=== PATIENT | female | born 1980 | race Caucasian/White ===

== ENCOUNTER 2020-05-22 10:07 | Outpatient (REF) | payer OTHER, SELFPAY ==
[2020-05-22 12:57] LABS: HCG Quantitative 5 mIU/mL
== END 2020-05-22 10:08 | disposition home or self-care (01) ==
LOC: HO.LAB 10:07
PROVIDERS: PCP Internal Medicine; Visit Provider Advanced Practice Midwife
DX: O20.0 Threatened abortion (principal)
CPT/HCPCS: 81025; 84702; 99212

== ENCOUNTER 2020-05-28 11:00 | Outpatient (REF) | payer OTHER, SELFPAY ==
[2020-05-28 12:45] LABS: HCG Quantitative < 2 mIU/mL
== END 2020-05-28 11:01 | disposition home or self-care (01) ==
LOC: HO.LAB 11:00
PROVIDERS: PCP Internal Medicine; Visit Provider Advanced Practice Midwife
DX: N92.6 Irregular menstruation, unspecified (principal)
CPT/HCPCS: 36415; 84702; 86850; 86900; 86901

== ENCOUNTER 2020-06-23 09:00 | Outpatient (REF) | payer OTHER, SELFPAY ==
[2020-06-23 11:23] LABS: HCG Quantitative 32 mIU/mL
== END 2020-06-23 09:01 | disposition home or self-care (01) ==
LOC: HO.LAB 09:00
PROVIDERS: Visit Provider Advanced Practice Midwife
DX: N92.6 Irregular menstruation, unspecified (principal); Z32.01 Encounter for pregnancy test, result positive
CPT/HCPCS: 36415; 81025; 84702; 99212

== ENCOUNTER 2020-06-25 11:55 | Outpatient (REF) | payer OTHER, SELFPAY ==
[2020-06-25 13:03] LABS: HCG Quantitative 20 mIU/mL
== END 2020-06-25 11:56 | disposition home or self-care (01) ==
LOC: HO.LAB 11:55
PROVIDERS: Visit Provider Advanced Practice Midwife
DX: N92.6 Irregular menstruation, unspecified (principal)
CPT/HCPCS: 36415; 84702

== ENCOUNTER 2020-07-03 11:07 | Outpatient (REF) | payer OTHER, SELFPAY ==
[2020-07-03 12:21] LABS: HCG Quantitative < 2 mIU/mL
== END 2020-07-03 11:08 | disposition home or self-care (01) ==
LOC: HO.LAB 11:07
PROVIDERS: PCP Internal Medicine; Visit Provider Advanced Practice Midwife
DX: O03.9 Complete or unspecified spontaneous abortion without complication (principal)
CPT/HCPCS: 36415; 84702

== ENCOUNTER 2020-09-30 13:28 | Outpatient (REF) | payer OTHER, SELFPAY ==
[2020-09-30 15:59] LABS: HCG Quantitative 104527 mIU/mL
[2020-10-01 01:08] LABS: CT PCR NOT DETECTED (Not Detect.); NG PCR NOT DETECTED (Not Detect.)
== END 2020-09-30 13:29 | disposition home or self-care (01) ==
LOC: HO.LAB 13:28
PROVIDERS: PCP Internal Medicine; Visit Provider Obstetrics & Gynecology
DX: O26.851 Spotting complicating pregnancy, first trimester (principal); Z3A.01 Less than 8 weeks gestation of pregnancy
CPT/HCPCS: 84702; 86850; 87491; 87591; 99212

== ENCOUNTER 2020-10-01 13:52 | Outpatient (REF) | payer OTHER, SELFPAY ==
--- NOTE | ~2020-10-01 | US_ITS ---
EXAMINATION: US OBSTETRICAL ULTRASOUND CLINICAL INFORMATION: Spotting. Check viability. COMPARISON: None. LMP: 08/15/2020. Gestational age by maternal dates is 6 weeks 5 days. Estimated date of delivery by maternal dates is 05/22/2021. TECHNIQUE: Transabdominal first trimester OB ultrasound FINDINGS: There is a single intrauterine gestational sac with visible yolk sac, embryo/fetus, and cardiac activity. There is no significant subchorionic hemorrhage or hematoma. HR: 124 beats per minute. CRL (crown rump length): 0.56 cm (6 weeks 3 days +/- 4 days). MERLY (estimated date of delivery): 05/24/2021 +/- 4 days. MATERNAL ADNEXA: The right maternal ovary is not seen. The left maternal ovary measures 2.5 x 1.6 x 2.1 cm. There is no significant maternal adnexal mass. No maternal pelvic ascites. US/US OB <= 14 weeks fetus IMPRESSION: 1. Single intrauterine gestation with ultrasound gestational age of 6 weeks 3 days +/- 4 days. 2. Estimated date of delivery is 05/24/2021 +/- 4 days.
== END 2020-10-01 13:53 | disposition home or self-care (01) ==
LOC: HO.US 13:52
PROVIDERS: PCP Internal Medicine; Visit Provider Obstetrics & Gynecology
DX: O26.851 Spotting complicating pregnancy, first trimester (principal)
CPT/HCPCS: 76801

== ENCOUNTER 2020-11-01 17:17 | Emergency (ER) | payer OTHER, SELFPAY ==
--- NOTE | ~2020-11-01 | US_ITS ---
EXAMINATION: US OBSTETRICAL ULTRASOUND CLINICAL INFORMATION: Vaginal bleeding, 11 weeks COMPARISON: ultrasound 10/01/2020. TECHNIQUE: A limited study was performed to assess for viability. Transabdominal scanning was performed. FINDINGS: A single live fetus is present in the gestational sac with a crown-rump length of 4.58 cm corresponding to a gestational age of 11 weeks 3 days with an MERLY of 05/20/2021. The fetus was active during the course of the exam. The left ovary measured 4.2 x 2.9 x 2.4 cm and contained a small simple cyst. The right ovary was not seen. US/US OB <= 14 weeks fetus IMPRESSION: Single live intrauterine with gestational age estimated at 11 weeks 3 days with an MERLY of 05/20/2021
[2020-11-01 17:49] VITALS: BP 133/76; PULSE 98; RESP 18; TEMP 36.8; O2SAT 99; BMI 32.4
[2020-11-01 18:21] LABS: Glucose Urine UA NEG (NEG); Leukocyte Esterase Urine NEG (NEG); Nitrite Urine NEG (NEG); Specific Gravity - Urine 1.015 (1.005-1.025); Urine Blood TRACE (NEG); Urine Ketones NEG (NEG); Urine Protein NEG (NEG-TRACE)
[2020-11-01 18:22] LABS: UPreg QC Valid YES; Urine Pregnancy POSITIVE (NEGATIVE)
[2020-11-01 18:23] LABS: Appearance Urine HAZY; Color Urine YELLOW
[2020-11-01 18:30] LABS: Amorphous Sediment Urine 1+ /LPF; Bacteria Urine TRACE /LPF; Squamous Epithelial Cell Urine 1+ /LPF
[2020-11-01 21:00] VITALS: BP 127/79; PULSE 88; RESP 18; O2SAT 98
--- NOTE | 2020-11-01 21:21 | ED.PREGNANCY ---
HPI - General Chief complaint: Vaginal Bleeding Stated complaint: 11 wks spotting Time Seen by Provider: 11/01/20 21:15 History of Present Illness HPI Narrative: Patient is a 40-year-old female presents today with having vaginal spotting. She is approximately 11 weeks . Patient had an ultrasound done at 6 weeks shows an intrauterine . No fever no chills. No cough no congestion or upper respiratory symptoms. No abdominal pain. Patient claims the spotting has improved in the last few hours. Patient from home. No abdominal pain or cramping. Patient thinks her blood type is O negative. Related Data Home Medications Medication Instructions Recorded Confirmed buprenorphine 2 mg-naloxone 0.5 mg 1 film BUCCAL DAILY 05/22/20 09/30/20 sublingual film Allergies Allergy/AdvReac Type Severity Reaction Status Date / Time cephalexin [Keflex] Allergy Unknown hives Verified 10/01/20 16:21 No Known Allergies Allergy Verified 10/01/20 16:21 Review of Systems Review of Systems: Constitutional: No Weight loss, No Fever, No Chills, No Night Sweats, No Fatigue, No Malaise ENT/Mouth: No Hearing loss, No Ear Pain, No Nasal Congestion, No Sinus Pain, No Hoarseness, No sore throat, No Rhinorrhea, No Swallowing Difficulty Eyes: No Eye Pain, No Swelling, No Redness, No Foreign Body, No Discharge, No Vision Changes Cardiovascular: No Chest Pain, No SOB, No Dyspnea on Exertion, No Orthopnea, No Edema, No Palpitations Respiratory: No Cough, No Sputum, No Wheezing, No Smoke Exposure, No Dyspnea Gastrointestinal: No Nausea, No Vomiting, No Diarrhea, No Constipation, No abdominal Pain, No Hematochezia, No Melena Genitourinary: no irregular bleeding, No Dysuria, No Urinary Frequency, No Hematuria, No Urinary Incontinence, No Urgency, No Flank Pain, No Urinary Flow Changes, No Hesitancy Musculoskeletal: No joint pain, No Myalgias, No Joint Swelling Skin: No Skin Lesions, No rash Neuro: No Weakness, No Numbness, No Paresthesias, No Loss of Consciousness, No Dizziness, No Headache Psych: No Anxiety/Panic, No Depression, No SI/HI/AH/VH, No Social Issues, Heme/Lymph: No Bruising, No Bleeding,No Lymphadenopathy Endocrine: No Polyuria, No Polydipsia, No Temperature Intolerance PMFSH Past Medical History Medical History Cyst of right breast High blood pressure affecting in third trimester, delivered Irregular menses Positive home test Rh negative, maternal Surgical History Hx of appendectomy Family History Family History Mother HTN (hypertension) Social History Social History Alcohol intake: never Advance Directives: No Advance Directives Information Provided: No Patient : Yes Gender identity: female Physical Exam Vital Signs: Vital Signs: Last Vital Signs Temp 98.2 F 11/01/20 17:49 Pulse 88 11/01/20 21:00 Resp 18 11/01/20 21:00 BP 127/79 11/01/20 21:00 Pulse Ox 98 11/01/20 21:00 Body Mass Index 32.4 Appearance: Alert. Oriented X3. No acute distress. Eyes: Pupils equal, round and reactive to light. ENT: Pharynx normal. Neck: Normal inspection. Neck supple. No lymph nodes noted. No crepitus CVS: Normal heart rate and rhythm. Pulses normal. Normal S1 and S2 Respiratory: No respiratory distress. Breath sounds normal. No Wheezing. No rales Abdomen: Soft and nontender. No rigidity. No distention. good BS x4 Skin: Skin warm and dry. Normal skin color. Normal skin turgor. Extremities: No lower extremity edema. Neurovascular intact to all extremities. No Lacerations. No Rash Neuro: Oriented X 3. No motor deficit. No sensory deficit. Moving all extermities. No slurred speech MDM - OB/Uterine Contractions MDM Narrative Medical decision making narrative: Ultrasound shows a single IUP. Patient well appearing. No acute distress. Will discharge patient home. Close follow-up on an outpatient basis. In stable condition. Will give patient venae be precautions. Medical Records Attestation: I reviewed the patient's medical records. Lab Data Attestation: I reviewed the patient's lab results. Result diagrams: 11/01/20 21:28 11/01/20 21:28 Labs: Lab Results 11/01/20 11/01/20 11/01/20 Range/Units 18:08 18:08 21:28 WBC 9.0 (4.8-10.8) X10*3/uL RBC 4.19 L (4.20-5.50) X10*6/uL Hgb 12.1 (12.0-16.0) g/dl Hct 35.7 L (37-47) % MCV 85.2 (80-98) fL MCH 28.9 (27.0-33.0) pg MCHC 33.9 (31.0-35.0) g/dl RDW 12.6 (11.0-16.0) % Plt Count 302 (160-400) X10*3/uL MPV 8.2 L (9.4-12.3) fL Immature Gran % (Auto) 0.2 (0.0-0.4) % Neut % (Auto) 61.7 (45-73) % Lymph % (Auto) 30.0 (20-40) % [place] % (Auto) 7.5 (2-11) % Eos % (Auto) 0.4 (0-4) % Baso % (Auto) 0.2 (0-2) % Lymph # (Auto) 2.7 (1.2-4.9) X10*3/uL [place] # (Auto) 0.7 (0.1-1.2) X10*3/uL Eos # (Auto) 0.0 (0.0-0.4) X10*3/uL Baso # (Auto) 0.0 (0.0-0.2) X10*3/uL Abs Immat Gran (auto) 0.02 (0.00-0.03) X10*3/uL Absolute Neuts (auto) 5.6 (2.0-8.3) X10*3/uL Absolute Nucleated RBC 0.000 (0.0-0.012) X10*3/uL Nucleated RBC % (auto) 0.0 (0.0-0.2) /100WBC Sodium (135-145) mmol/L Potassium (3.3-5.1) mmol/L Chloride (96-108) mmol/L Carbon Dioxide (22-29) mmol/L Anion Gap (12-20) BUN (9-16) mg/dL Creatinine (0.5-1.4) mg/dL Estim Creat Clear Calc Estimated GFR Random Glucose (60-115) mg/dL Calcium (8.4-10.2) mg/dL Total Bilirubin (0.0-1.0) mg/dL Direct Bilirubin (0.0-0.5) mg/dL AST (5-31) U/L ALT (0-31) U/L Alkaline Phosphatase (39-117) U/L Total Protein (6.5-8.0) g/dL Albumin (3.5-5.0) g/dL Beta HCG, Quant mIU/mL Urine Color YELLOW Urine Appearance HAZY Urine pH 6.0 (5.0-8.0) Ur Specific [place] 1.015 (1.005-1.025) Urine Protein NEG (NEG-TRACE) MG/DL Urine Glucose (UA) NEG (NEG) MG/DL Urine Ketones NEG (NEG) MG/DL Urine Blood TRACE (NEG) Urine Nitrite NEG (NEG) Ur Leukocyte Esterase NEG (NEG) Urine RBC 1-4 (0) /HPF Urine WBC 1-4 (0-4) /HPF Ur Squamous Epith Cells 1+ /LPF Amorphous Sediment 1+ /LPF Urine Bacteria TRACE /LPF Urine Test POSITIVE H (NEGATIVE) Blood Type Antibody Screen 11/01/20 11/01/20 11/01/20 Range/Units 21:28 21:28 21:28 WBC (4.8-10.8) X10*3/uL RBC (4.20-5.50) X10*6/uL Hgb (12.0-16.0) g/dl Hct (37-47) % MCV (80-98) fL MCH (27.0-33.0) pg MCHC (31.0-35.0) g/dl RDW (11.0-16.0) % Plt Count (160-400) X10*3/uL MPV (9.4-12.3) fL Immature Gran % (Auto) (0.0-0.4) % Neut % (Auto) (45-73) % Lymph % (Auto) (20-40) % [place] % (Auto) (2-11) % Eos % (Auto) (0-4) % Baso % (Auto) (0-2) % Lymph # (Auto) (1.2-4.9) X10*3/uL [place] # (Auto) (0.1-1.2) X10*3/uL Eos # (Auto) (0.0-0.4) X10*3/uL Baso # (Auto) (0.0-0.2) X10*3/uL Abs Immat Gran (auto) (0.00-0.03) X10*3/uL Absolute Neuts (auto) (2.0-8.3) X10*3/uL Absolute Nucleated RBC (0.0-0.012) X10*3/uL Nucleated RBC % (auto) (0.0-0.2) /100WBC Sodium 138 (135-145) mmol/L Potassium 3.5 (3.3-5.1) mmol/L Chloride 106 (96-108) mmol/L Carbon Dioxide 23 (22-29) mmol/L Anion Gap 13 (12-20) BUN 5 L (9-16) mg/dL Creatinine 0.51 (0.5-1.4) mg/dL Estim Creat Clear Calc 149.6 Estimated GFR > 60 Random Glucose 89 (60-115) mg/dL Calcium 9.3 (8.4-10.2) mg/dL Total Bilirubin 0.4 (0.0-1.0) mg/dL Direct Bilirubin 0.2 (0.0-0.5) mg/dL AST 11 (5-31) U/L ALT 14 (0-31) U/L Alkaline Phosphatase 53 (39-117) U/L Total Protein 6.6 (6.5-8.0) g/dL Albumin 3.8 (3.5-5.0) g/dL Beta HCG, Quant 465000 mIU/mL Urine Color Urine Appearance Urine pH (5.0-8.0) Ur Specific [place] (1.005-1.025) Urine Protein (NEG-TRACE) MG/DL Urine Glucose (UA) (NEG) MG/DL Urine Ketones (NEG) MG/DL Urine Blood (NEG) Urine Nitrite (NEG) Ur Leukocyte Esterase (NEG) Urine RBC (0) /HPF Urine WBC (0-4) /HPF Ur Squamous Epith Cells /LPF Amorphous Sediment /LPF Urine Bacteria /LPF Urine Test (NEGATIVE) Blood Type O Negative Antibody Screen NEGATIVE Discharge Plan Discharge Clinical Impression: Threatened Patient Disposition: Home, Self-Care Instructions: Threatened Miscarriage (ED) Prescriptions: No Action buprenorphine-naloxone [Suboxone] 2-0.5 mg film 1 film buccal DAILY RF: 0 Referrals: Jean Marie Iverson MD [Physician] - 2 days
[2020-11-01 21:35] LABS: MANUAL DIFF FLAG NO
[2020-11-01 21:37] LABS: Basophils Percent Auto 0.2 % (0-2); Eosinophils Percent Auto 0.4 % (0-4); Hematocrit 35.7 % (37-47); Hemoglobin 12.1 g/dl (12.0-16.0); Imm Gran Abs Auto 0.02 X10*3/uL (0.00-0.03); Imm Gran Pct Auto 0.2 % (0.0-0.4); Lymphocytes Absolute Auto 2.7 X10*3/uL (1.2-4.9); Mean Corpuscular HGB Conc 33.9 g/dl (31.0-35.0); Mean Corpuscular Hemoglobin 28.9 pg (27.0-33.0); Mean Corpuscular Volume 85.2 fL (80-98); Mean Platelet Volume 8.2 fL (9.4-12.3); Monocytes Absolute Auto 0.7 X10*3/uL (0.1-1.2); Monocytes Percent Auto 7.5 % (2-11); Neutrophils Absolute Auto 5.6 X10*3/uL (2.0-8.3); Neutrophils Percent Auto 61.7 % (45-73); Platelet Count 302 X10*3/uL (160-400); Red Blood Count 4.19 X10*6/uL (4.20-5.50); Red Cell Distribution Width 12.6 % (11.0-16.0)
[2020-11-01 21:59] LABS: Alanine Aminotransferase 14 U/L (0-31); Albumin Level 3.8 g/dL (3.5-5.0); Alkaline Phosphatase 53 U/L (39-117); Anion Gap 13 (12-20); Aspartate Amino Transferase 11 U/L (5-31); Bilirubin Direct 0.2 mg/dL (0.0-0.5); Bilirubin Total 0.4 mg/dL (0.0-1.0); Blood Urea Nitrogen 5 mg/dL (9-16); Calcium 9.3 mg/dL (8.4-10.2); Carbon Dioxide 23 mmol/L (22-29); Chloride 106 mmol/L (96-108); Creatinine Clr Calc Pharmacy 149.6; Estimated Glomerular Filt Rate > 60; Glucose Random 89 mg/dL (60-115); Potassium 3.5 mmol/L (3.3-5.1); Sodium 138 mmol/L (135-145); Total Protein 6.6 g/dL (6.5-8.0)
[2020-11-01] MEDS: Rho(D) Immune Globulin 300 MCG SYRINGE IM (22:53)
== END 2020-11-02 00:15 | disposition home or self-care (01) ==
PROVIDERS: Emergency Provider Emergency Medicine Emergency Medical Services; PCP Internal Medicine
DX: O20.0 Threatened abortion (principal); O09.521 Supervision of elderly multigravida, first trimester; Z3A.11 11 weeks gestation of pregnancy
CPT/HCPCS: 36415; 76801; 80048; 80076; 81001; 81025; 84702; 85025; 86850; 86900; 86901; 96372; 99284; J2790

== ENCOUNTER 2022-06-14 07:52 | Outpatient (REF) | payer OTHER, SELFPAY ==
--- NOTE | ~2022-06-14 | XR_ITS ---
EXAMINATION: XR KNEE, RIGHT CLINICAL INFORMATION: Pain. COMPARISON: None TECHNIQUE: AP, lateral, tunnel, and sunrise views of the right knee. FINDINGS: Bony alignment and mineralization are normal. There is slight asymmetric narrowing of the medial joint space compartment. The lateral and patellofemoral joint space compartments are well-maintained. No fracture, dislocation or joint effusion is seen. There is no foreign body. XR/XR knee RT 4V IMPRESSION: 1. There is very mild degenerative change of the medial joint space compartment of the right knee. 2. No right knee fracture, dislocation or joint effusion is seen.
[2022-06-14 08:01] LABS: MANUAL DIFF FLAG NO
[2022-06-14 08:17] LABS: Basophils Percent Auto 0.6 % (0-2); Eosinophils Absolute Auto 0.1 X10*3/uL (0.0-0.4); Eosinophils Percent Auto 1.2 % (0-4); Hematocrit 40.4 % (37.0-47.0); Hemoglobin 13.2 g/dl (12.0-16.0); Imm Gran Abs Auto 0.05 X10*3/uL (0.00-0.03); Imm Gran Pct Auto 0.7 % (0.0-0.4); Lymphocytes Percent Auto 27.9 % (20-40); Mean Corpuscular HGB Conc 32.7 g/dl (31.0-35.0); Mean Corpuscular Hemoglobin 27.5 pg (27.0-33.0); Mean Corpuscular Volume 84.2 fL (80.0-98.0); Mean Platelet Volume 8.3 fL (9.4-12.3); Monocytes Absolute Auto 0.5 X10*3/uL (0.1-1.2); Monocytes Percent Auto 6.4 % (2-11); Neutrophils Absolute Auto 4.6 x10*3/uL (2.0-8.3); Neutrophils Percent Auto 63.2 % (45-73); Platelet Count 306 X10*3/uL (160-400); White Blood Count 7.2 X10*3/uL (4.8-10.8)
[2022-06-14 08:55] LABS: Alanine Aminotransferase 25 U/L (0-31); Albumin Level 4.1 g/dL (3.5-5.0); Alkaline Phosphatase 92 U/L (39-117); Anion Gap 14 (12-20); Aspartate Amino Transferase 17 U/L (5-31); Bilirubin Total 0.4 mg/dL (0.0-1.0); Blood Urea Nitrogen 12 mg/dL (9-16); Calcium 9.1 mg/dL (8.4-10.2); Carbon Dioxide 22 mmol/L (22-29); Chloride 108 mmol/L (96-108); Cholesterol 168 mg/dL; Estimated Glomerular Filt Rate > 60; Glucose Fasting 107 mg/dL (60-99); HDL Cholesterol 60 mg/dL; LDL Cholesterol Calculated 92 mg/dl; Potassium 4.2 mmol/L (3.3-5.1); Sodium 140 mmol/L (135-145); Total Protein 6.8 g/dL (6.5-8.0); Triglycerides 80 mg/dL
[2022-06-14 08:59] LABS: TSH reflex Free T4 1.08 uIU/mL (0.32-4.0); Vitamin D 25-OH Total 21.8 ng/mL (>30)
[2022-06-14 09:54] LABS: Appearance Urine Clear; Color Urine Yellow; Glucose Urine UA Negative (Negative); Leukocyte Esterase Urine Small (1+) (Negative); Nitrite Urine Negative (Negative); Specific Gravity - Urine 1.025 (1.005-1.025); UMIC TRIGGER UACC YES; Urine Blood Negative (Negative); Urine Ketones Negative (Negative); Urine Protein Negative (Neg-Trace)
[2022-06-14 10:00] LABS: Bacteria Urine 4+ (None Seen); Hyaline Casts Urine 0-2 /LPF (0-2); RBC Urine 0-2 /HPF (0-2); UACC Culture Trigger YES; WBC Urine 21-50 /HPF (0-5)
== END 2022-06-14 07:53 | disposition home or self-care (01) ==
LOC: HO.XRAY 07:52
PROVIDERS: PCP Internal Medicine; Visit Provider Internal Medicine
DX: Z00.00 Encounter for general adult medical examination without abnormal findings (principal); M25.561 Pain in right knee; E78.00 Pure hypercholesterolemia, unspecified; E55.9 Vitamin D deficiency, unspecified
CPT/HCPCS: 36415; 73564; 80053; 80061; 81001; 82306; 84443; 85025; 87086; 87088; 87186

== ENCOUNTER 2022-06-24 14:46 | Outpatient (REF) | payer OTHER, SELFPAY ==
--- NOTE | ~2022-06-24 | MM_ITS ---
EXAMINATION: MM SCREENING DIGITAL BREAST TOMOSYNTHESIS, BILATERAL CLINICAL INFORMATION: Screening. Asymptomatic. The lifetime risk of breast cancer based on the Tyrer-Cuzick Model is 9.5%. COMPARISON: Mammography: 04/13/2016. TECHNIQUE: Digital breast tomosynthesis is performed in both the craniocaudal and mediolateral oblique views along with computer-aided detection (CAD). Synthesized 2D images are generated from the tomosynthesis. FINDINGS: The breasts are heterogeneously dense, which may obscure small masses (ACR BI-RADS breast composition Category c). Within the superior aspect of the mid right breast, there are again noted to be some calcifications as well as question of a density. Calcifications have been noted previously but difficult to directly compare. No definite evidence of milk of calcium. Recommend spot magnification films in 90-degree and craniocaudal projections for evaluation of calcifications and underlying question mass seen on craniocaudal view. MM/MM tomosynthesis screening BI IMPRESSION: Right breast calcifications and density for further evaluation as described. ASSESSMENT: BI-RADS 0: Incomplete - Need additional imaging evaluation. RECOMMENDATION: 1. Additional views of the right breast. 2. Targeted ultrasound if warranted after review of the additional views. 3. Radiology department staff will contact the patient for additional imaging. This patient's information was entered into a reminder system with a target due date for their next mammogram.
== END 2022-06-24 14:47 | disposition home or self-care (01) ==
LOC: HO.MAMMO 14:46
PROVIDERS: PCP Internal Medicine; Visit Provider Internal Medicine
DX: Z12.31 Encounter for screening mammogram for malignant neoplasm of breast (principal)
CPT/HCPCS: 77063; 77067

== ENCOUNTER 2022-07-01 13:01 | Outpatient (REF) | payer OTHER, SELFPAY ==
--- NOTE | ~2022-07-01 | MM_ITS ---
EXAMINATION: MM DIAGNOSTIC DIGITAL MAMMOGRAPHY, RIGHT CLINICAL INFORMATION: Right breast calcifications and question density. COMPARISON: Mammography: 04/13/2016 TECHNIQUE: Digital mammography is performed in the following views: Spot magnification views right breast in craniocaudal and 90-degree mediolateral views. FINDINGS: The breasts are heterogeneously dense, which may obscure small masses (ACR BI-RADS breast composition Category c). The grouping of calcifications about the superior aspect of the right breast appears stable compared to examination of 04/13/2016. The spot compression views also compressed out the questioned mass which represented superimposition of fibroglandular tissue. Results are provided to the patient at time of visit by the technologist. MM/MM added views RT IMPRESSION: No mammographic evidence of malignancy. ASSESSMENT: BI-RADS 2: Benign RECOMMENDATION: Routine annual mammography screening. This patient's information was entered into a reminder system with a target due date for their next mammogram.
== END 2022-07-01 13:02 | disposition home or self-care (01) ==
LOC: HO.MAMMO 13:01
PROVIDERS: Visit Provider Internal Medicine
DX: R92.1 Mammographic calcification found on diagnostic imaging of breast (principal)
CPT/HCPCS: 77065

== ENCOUNTER 2023-01-07 15:46 | Outpatient (AMB) | payer OTHER, SELFPAY ==
[2023-01-07 15:48] VITALS: BP 144/92; PULSE 92; O2SAT 97; BMI 35.8
--- NOTE | 2023-01-07 15:48 | A.OFFPC_ITS ---
Vital Signs 01/07/23 15:48 Height 5 ft 3 in Weight 202 lb 4 oz BMI 35.8 BP 144/92 H Blood Pressure Location Lt brachial Position Sitting Pulse 92 Pulse Source Pulse Oximeter Pulse Oximetry (%) 97 Oxygen Delivery Method Room Air Intake Visit Reasons: right knee pain Director Of Epidemiology Required: No Accompanied by: Self / Same As Patient Allergies cephalexin [Keflex] Allergy (Unknown, Verified 01/07/23 16:15) hives No Known Allergies Allergy (Verified 01/07/23 16:15) Medication List - Last Reconciled 01/07/23 by River Kendrick MD etonogestrel (Nexplanon) subdermal Tobacco use date assessed: 01/07/23 Dental Screening Dental Screen Date: 01/07/23 Did you have a dental visit in the last 12 months?: No Did you have a dental problem in the last 6 months where you did not have access to dental care?: No Was dental information given to patient?: Patient has dentist HPI right knee pain HPI Details Patient comes in today for her follow up visit States that she feels okay Still has on and off right knee pain but states that her knee pain have been mostly tolerable lately She has been back to work for a while now (works at a local [employer]) and states that she's had no significant flare ups or issues with her knee She denies any headaches or dizziness Denies any chest pains, no SOB No nausea/vomiting, no abdominal pain No change in bowel habits noted Would like to know how she did on her labs done back in May 2022 [facility] Medical History (Updated 01/07/23 @ 16:26 by River Kendrick MD) Cyst of right breast High blood pressure affecting in third trimester, delivered Irregular menses Obesity (BMI 30-39.9) Primary osteoarthritis of right knee Rh negative, maternal Vitamin D deficiency Surgical History Hx of appendectomy Family History Mother HTN (hypertension) Social History Housing: House Alcohol intake: never Patient Tobacco Use Status: Former Tobacco user Years Smoked: pt states quit 3 yrs ago e-Cigarette/Vaping Use: Never Used Substance Use Type: Heroin service: No Current occupational status: employed Gender identity: Female Cognitive needs: No Hearing needs: No Vision needs: Yes Female Reproductive History Menstrual Age of Menarche: 14 Questionnaire PHQ-9 Over the last 2 weeks, how often have you been bothered by any of the following problems? 1. Little interest or pleasure in doing things: not at all 2. Feeling down, depressed, or hopeless: not at all 3. Trouble falling or staying asleep, or sleeping too much: not at all 4. Feeling tired or having little energy: not at all 5. Poor appetite or overeating: not at all 6. Feeling bad about yourself - or that you are a failure or have let yourself or your family down: not at all 7. Trouble concentrating on things, such as reading the newspaper or watching television: not at all 8. Moving or speaking so slowly that other people could have noticed. Or the opposite - being so fidgety or restless that you have been moving around a lot more than usual: not at all 9. Thoughts that you would be better off or of hurting yourself in some way: not at all Total score: 0 Depression Screening Interpretation: Negative 73391 - PHQ-9 Billing: Yes Source: Developed by Drs. Raul Chavez, Karol Yañez, Vincent Williamson and colleagues, with an educational adrianne from [employer]. Thrive Questionnaire Date Thrive assessed: 01/07/23 I am a: Patient What is your living situation today?: I have a steady place to live Within the past 12 months, did the food you bought not last and you didn't have the money to get more?: Never true Within the past 12 months, did you worry whether your food would run out before you got money to buy more?: Never true Do you have trouble paying for medicines?: No Do you have trouble getting transportation to medical appointments?: No Do you have trouble paying your heating and electricity bill?: No Do you have trouble taking care of your child, family member or friend?: No Do you have trouble with day-to-day activities such as bathing, preparing meals, shopping, managing finances, etc.?: No Are you currently unemployed and looking for a job?: No Are you interested in more education?: No Please select the resources that you would like help with: None Currently or been in a relationship where the following occur: no concerns reported AUDIT C Alcohol Use Questionnaire (AUDIT-C) 1. How often do you have a drink containing alcohol?: Never 2. How many drinks containing alcohol do you have on a typical day when you are drinking?: 1 or 2 (0) 3. How often do you have six or more drinks on one occasion?: Never Total Score: 0 Score Reviewed/Action Taken: Yes JAROD-7 AMB Questionnaire JAROD-7 Date JAROD - 7 assessed: 01/07/23 Feeling nervous, anxious, or on edge: 0 = Not at all Not being able to stop or control worryin = Not at all Worrying too much about different things: 0 = Not at all Trouble relaxin = Not at all Being so restless that it is hard to sit still: 0 = Not at all Becoming easily annoyed or irritable: 0 = Not at all Feeling afraid as if something awful might happen: 0 = Not at all Total JAROD-7 score (0-4 normal; 5-9 mild; 10-14 moderate; 15-21 severe): 0 Source: Developed by Drs. Raul Chavez, Karol Yañez, Vincent Williamson and colleagues, with an educational adrianne from [employer]. Review of Systems Const Denies chills, Denies fatigue, Denies fever(s) and Denies headache(s) ENT Denies dysphagia, Denies dizziness, Denies otalgia, Denies headache(s), Denies neck pain, Denies odynophagia and Denies sore throat Card Denies chest pain, Denies palpitations and Denies dyspnea Resp Denies cough and Denies dyspnea GI Denies abdominal pain, Denies constipation, Denies dysphagia, Denies heartburn, Denies diarrhea, Denies nausea, Denies odynophagia and Denies vomiting Denies difficulty voiding, Denies nocturia and Denies dysuria Musc Reports arthralgias (in the right knee, on and off) and Denies neck pain Neuro Denies dizziness and Denies headache(s) Endo Denies fatigue and Denies palpitations Physical exam (Primary Care) Vital Signs: Last Vital Signs Pulse 92 08/18/23 15:48 BP 144/92 H 01/07/23 15:48 Pulse Ox 97 01/07/23 15:48 Oxygen Delivery Method Room Air 01/07/23 15:48 BMI result Body Mass Index 35.8 Tobacco/Smoking Status: Tobacco use Status Tobacco use date assessed 01/07/23 01/07/23 15:52 Patient Tobacco Use Status Former Tobacco user 01/07/23 15:52 e-Cigarette/Vaping Use Never Used 01/07/23 15:52 PHQ-9: PHQ-9 Score PHQ-9: Total score 0 01/07/23 16:26 Depression Screening Interpretation: Negative Thrive Assessment: Date of Thrive Assessment Date Thrive assessed 01/07/23 01/07/23 15:52 Currently or been in a relationship where the following occur: no concerns reported Const General: no acute distress and alert HENMT Ears: TM's normal bilaterally and EAC's normal Throat: Yes posterior oropharynx normal and Yes tonsils normal (no TP congestion) Neck Neck: Yes no lymphadenopathy and Yes supple Resp Auscultation: clear to auscultation bilaterally, no rales and no wheezes Cardio Rate: regular rate Rhythm: regular rhythm Heart sounds: no murmurs GI Palpation (GI): Soft to palpation, nontender and No hepatosplenomegaly present Skin General skin exam: no rashes or lesions noted Extrem General: Yes no clubbing, cyanosis or edema Results Reviewed Results Reviewed: Laboratory Tests 06/14/22 06/14/22 06/14/22 07:40 07:59 07:59 WBC 7.2 Hgb 13.2 Hct 40.4 Plt Count 306 Sodium 140 Potassium 4.2 Creatinine 0.74 Estimated GFR > 60 Fasting Glucose 107 H Calcium 9.1 AST 17 ALT 25 Triglycerides 80 Cholesterol 168 LDL Cholesterol, Calc 92 HDL Cholesterol 60 25-OH Vitamin D Total 21.8 TSH 1.08 Ur Specific [place] 1.025 Urine Protein Negative Urine Glucose (UA) Negative Urine Blood Negative Assessment and Plan Assessment & Plan (1) Primary osteoarthritis of right knee: Code(s): M17.11 - Unilateral primary osteoarthritis, right knee Plan: X-rays of the right knee done back in May 2022 revealed (+) very mild degenerative change of the medial joint space compartment of the right knee Advised that at this point, there is not much we need to do and that she can just take OTC Tylenol or Ibuprofen as needed for increased knee pain Will consider referring to orthopedics if her knee pain gets progressively worse (2) Impaired fasting glucose: Code(s): R73.01 - Impaired fasting glucose Plan: Results of her labs done back in May 2022 reviewed and discussed with patient Advised that her fasting glucose was slightly elevated on her labs done back in May 2022 and that we should monitor it closely for now Discussed low calorie diet/low carb diet Advised that exercising regularly and losing some weight should also help keep this under control Will recheck her labs when she comes back in 6 months for her next annual physical examination (3) Vitamin D deficiency: Code(s): E55.9 - Vitamin D deficiency, unspecified Plan: Advised that her Vitamin D level was low on her labs done earlier this year and that she should start taking an OTC Vitamin D3 2000 units QD (4) Obesity (BMI 30-39.9): Code(s): E66.9 - Obesity, unspecified Plan: Reinforced diet/exercise as tolerated/lose weight Plan To return in 6 months for her next annual physical examination Coding Level of Care Code Est Pt Level 4 (93079) Diagnoses Primary osteoarthritis of right knee M17.11 Impaired fasting glucose R73.01 Vitamin D deficiency E55.9 Obesity (BMI 30-39.9) E66.9
== END 2023-01-07 16:23 | disposition home or self-care (01) ==
PROVIDERS: PCP Internal Medicine; Visit Provider Internal Medicine
DX: M17.11 Unilateral primary osteoarthritis, right knee (principal); E55.9 Vitamin D deficiency, unspecified; Z68.35 Body mass index [BMI] 35.0-35.9, adult; E66.9 Obesity, unspecified; R73.01 Impaired fasting glucose
CPT/HCPCS: 99214

== ENCOUNTER 2023-04-06 10:44 | Outpatient (AMB) | payer OTHER, SELFPAY ==
--- NOTE | 2023-04-06 10:46 | A.OFFPC_ITS ---
Intake Visit Reasons: covid+ 3 days out/ tighten in chest when coughing Intake Note: Telehealth Covid positive, tight chest, cough Ruffling Hemmer Automatic Required: No Allergies cephalexin [Keflex] Allergy (Unknown, Verified 04/06/23 11:29) hives No Known Allergies Allergy (Verified 04/06/23 11:29) Medication List - Last Reconciled 04/06/23 by Sarita Schultz MD etonogestrel (Nexplanon) subdermal Tobacco use date assessed: 01/07/23 Dental Screening Dental Screen Date: 04/06/23 Did you have a dental visit in the last 12 months?: No Did you have a dental problem in the last 6 months where you did not have access to dental care?: No Was dental information given to patient?: Patient has dentist HPI HPI Comments History of Present Illness Details This is a 42-year-old female that tested positive for COVID-19 3 days ago and started having symptoms of sneezing and coughing as well as body aches 5 days ago. She has telehealth visit by phone today complaining of cough and chest wall pain on inspiration. She said the symptoms are similar as to when she had bronchitis. I will order chest x-ray. [facility] Medical History (Updated 04/06/23 @ 11:56 by Sarita Schultz MD) Vitamin D deficiency Primary osteoarthritis of right knee Obesity (BMI 30-39.9) Rh negative, maternal High blood pressure affecting in third trimester, delivered Cyst of right breast Irregular menses Surgical History Hx of appendectomy Family History Mother HTN (hypertension) Social History Housing: House Alcohol intake: never Patient Tobacco Use Status: Former Tobacco user Years Smoked: pt states quit 3 yrs ago e-Cigarette/Vaping Use: Never Used Substance Use Type: Heroin service: No Current occupational status: employed Gender identity: Female Cognitive needs: No Hearing needs: No Vision needs: Yes Female Reproductive History Menstrual Age of Menarche: 14 Questionnaire Thrive Questionnaire Date Thrive assessed: 01/07/23 JAROD-7 AMB Questionnaire JAROD-7 Date JAROD - 7 assessed: 01/07/23 Source: Developed by Drs. Raul Chavez, Karol Yañez, Vincent Williamson and colleagues, with an educational adrianne from [employer]. Review of Systems Const All systems reviewed & are unremarkable except as noted in HPI and below Eyes Reports no additional complaints, Denies change in vision and Denies other visual disturbances Card Denies chest pain at rest, Denies chest pain with activity, Denies edema, Denies irregular heart rhythm, Denies claudication, Denies dyspnea, Reports dyspnea on exertion, Denies orthopnea, Denies paroxysmal nocturnal dyspnea and Denies slow heart rate Resp Reports cough, Reports pain on inspiration, Reports pain with cough, Denies dyspnea and Reports dyspnea on exertion GI Denies abdominal pain, Denies change in bowel habits, Denies excessive flatus, Denies nausea and Denies vomiting Denies urinary incontinence, Denies urinary hesitancy and Denies urinary urgency Musc Denies abnormal gait, Denies atrophy, Denies deformity and Denies limited range of motion Skin/Breast Denies bleeding lesions, Denies changing lesions and Denies rash Neuro Denies abnormal gait and Denies lack of coordination Physical exam (Primary Care) Tobacco/Smoking Status: Tobacco use Status Tobacco use date assessed 01/07/23 04/06/23 10:48 Patient Tobacco Use Status Former Tobacco user 04/06/23 10:48 e-Cigarette/Vaping Use Never Used 04/06/23 10:48 Thrive Assessment: Date of Thrive Assessment Date Thrive assessed 01/07/23 04/06/23 10:48 Telehealth Telehealth Location of provider rendering services: practice address Location of patient: address on file Patient Identification confirmed using: Name, : Yes Telehealth method: voice only Patient verbally consented to treatment: Yes Patient verbally consented to billing insurance company: Yes Patient informed of any privacy concerns related to visit: Yes Minutes spent on Phone/Video with Pt.: 15 Assessment and Plan Assessment & Plan (1) COVID-19: Code(s): U07.1 - COVID-19 Plan: Treat symptoms as needed. Chest x-ray ordered. Coding Level of Care Code Tele Est Pt Level 3 (16572) Diagnoses COVID-19 U07.1 Time Spent (min) 15
== END 2023-04-06 12:43 | disposition home or self-care (01) ==
LOC: HO.HMGH 10:44
PROVIDERS: PCP Internal Medicine; Visit Provider Internal Medicine
DX: U07.1 COVID-19 (principal)
CPT/HCPCS: 99213

== ENCOUNTER 2023-04-07 08:02 | Outpatient (REF) | payer OTHER, SELFPAY ==
--- NOTE | ~2023-04-07 | XR_ITS ---
EXAMINATION: XR CHEST CLINICAL INFORMATION: Covid 19 COMPARISON: 10/28/2012 TECHNIQUE: 2 views of the chest were obtained. FINDINGS: No significant abnormality is noted involving the heart, lungs, mediastinum, or soft tissues. Mild degenerative changes. XR/XR chest 2V IMPRESSION: No acute cardiopulmonary disease.
== END 2023-04-07 08:03 | disposition home or self-care (01) ==
LOC: HO.XRAY 08:02
PROVIDERS: Visit Provider Internal Medicine
DX: R05.9 Cough, unspecified (principal); U07.1 COVID-19
CPT/HCPCS: 71046

== ENCOUNTER 2023-06-01 08:28 | Outpatient (AMB) | payer OTHER, SELFPAY ==
--- NOTE | 2023-06-01 08:37 | AM.OFFWIN_ITS ---
Intake Vital Signs 06/01/23 08:42 Height 5 ft 3 in Weight 196 lb 2 oz BMI 34.7 BP 120/80 Blood Pressure Location Lt brachial Position Sitting Pulse 107 H Pulse Source Pulse Oximeter Temp 97.2 F Temp Source Oral Pulse Oximetry (%) 96 Oxygen Delivery Method Room Air Intake Visit Reasons: EP vomiting diarhea [id number] Intake Note: pt is here today for vomiting diarhea started yesterday Patient Tobacco Use Status: Former Tobacco user Allergies cephalexin [Keflex] Allergy (Unknown, Verified 06/01/23 08:38) hives No Known Allergies Allergy (Verified 06/01/23 08:38) Do you need a note to return to daycare/school/sports/work: Yes HPI EP vomiting diarhea [id number] HPI Details 42-year-old female presents to the [facility] for a sick visit. 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 For the last 3 days patient has been having explosive diarrhea. Other family members have had similar illnesses and are recovering. Cramping sensation present. Patient feels very tired. [facility] Medical History Vitamin D deficiency Primary osteoarthritis of right knee Obesity (BMI 30-39.9) Rh negative, maternal High blood pressure affecting in third trimester, delivered Cyst of right breast Irregular menses Surgical History Hx of appendectomy Family History Mother HTN (hypertension) Social History Housing: House Alcohol intake: never Patient Tobacco Use Status: Former Tobacco user Years Smoked: pt states quit 3 yrs ago e-Cigarette/Vaping Use: Never Used Substance Use Type: Heroin service: No Current occupational status: employed Gender identity: Female Cognitive needs: No Hearing needs: No Vision needs: Yes Female Reproductive History Menstrual Age of Menarche: 14 Physical Exam Vital Signs: Last Vital Signs Temp 97.2 F 06/01/23 08:42 Pulse 107 H 06/01/23 08:42 BP 120/80 06/01/23 08:42 Pulse Ox 96 06/01/23 08:42 Oxygen Delivery Method Room Air 06/01/23 08:42 BMI result Body Mass Index 34.7 Const General: cooperative and healthy appearing Nutritional Appearance: well nourished Orientation/consciousness: patient oriented x3 Limitations: no limitations HEENT Head: Yes normal to inspection Eyes General: appearance normal, both eyes and all related structures Neck Neck: Yes normal visual inspection Chest Chest palpation & inspection: normal palpation of entire chest wall Resp Effort & Inspection: normal respiratory effort Neuro General: patient oriented x3 Assessment & Plan Assessment & Plan (1) Gastroenteritis: Code(s): K52.9 - Noninfective gastroenteritis and colitis, unspecified Plan: Self-limiting viral gastroenteritis. Increase fluid intake. Note for work given. Coding Level of Care Code Est Pt Level 3 (69080) Diagnoses Gastroenteritis K52.9
[2023-06-01 08:42] VITALS: BP 120/80; PULSE 107; TEMP 36.2; O2SAT 96; BMI 34.7
== END 2023-06-01 10:18 | disposition home or self-care (01) ==
PROVIDERS: PCP Internal Medicine; Visit Provider Internal Medicine
DX: K52.9 Noninfective gastroenteritis and colitis, unspecified (principal)
CPT/HCPCS: 99213

== ENCOUNTER → 2023-06-27 14:45 | Outpatient (BNV) | payer OTHER, SELFPAY | PROVIDERS: PCP Internal Medicine; Visit Provider Radiology Diagnostic Radiology | DX: Z12.31 Encounter for screening mammogram for malignant neoplasm of breast (principal) | CPT/HCPCS: 77063; 77067 ==

== ENCOUNTER 2023-06-27 14:56 | Outpatient (REF) | payer OTHER, SELFPAY ==
--- NOTE | ~2023-06-27 | MM_ITS ---
EXAMINATION: MM SCREENING DIGITAL BREAST TOMOSYNTHESIS, BILATERAL CLINICAL INFORMATION: Screening. Asymptomatic. COMPARISON: Mammography: This study is compared with prior exams dating back to 2016. TECHNIQUE: Digital breast tomosynthesis is performed in both the craniocaudal and mediolateral oblique views along with computer-aided detection (CAD). Synthesized 2D images are generated from the tomosynthesis. FINDINGS: There are scattered areas of fibroglandular density (ACR BI-RADS breast composition Category b). In the upper outer quadrant of the right breast, at a middle depth, there are grouped calcifications which warrant additional mammographic imaging with magnification. In the left breast, there are no significant masses, abnormal calcifications, or other abnormalities. MM/MM tomosynthesis screening BI IMPRESSION: Grouped calcifications in the right breast warrant additional mammographic imaging with magnification. When the calcifications are magnified in the lateral projection, the image should be obtained after a 2 minute delay and compression to allow any potential milk of calcium to be visible. No mammographic signs of malignancy left breast. ASSESSMENT: BI-RADS BI-RADS 0 - Incomplete: Needs additional Imaging. RECOMMENDATION: Additional views of the right breast. Radiology department staff will contact the patient for additional imaging. Additional Imaging required This examination should not preclude the clinical evaluation of a suspicious palpable abnormality. This patient's information was entered into a reminder system with a target due date for their next mammogram.
== END 2023-06-27 14:57 | disposition home or self-care (01) ==
LOC: HO.MAMMO 14:56
PROVIDERS: PCP Internal Medicine; Visit Provider Internal Medicine
DX: Z12.31 Encounter for screening mammogram for malignant neoplasm of breast (principal)
CPT/HCPCS: 77063; 77067

== ENCOUNTER 2023-07-12 10:19 | Outpatient (AMB) | payer OTHER, SELFPAY ==
[2023-07-12 10:22] VITALS: BP 128/82; PULSE 104; O2SAT 96; BMI 35.1
--- NOTE | 2023-07-12 10:22 | A.OFFPC_ITS ---
Vital Signs 07/12/23 10:22 Height 5 ft 3 in Weight 198 lb 4 oz BMI 35.1 BP 128/82 Blood Pressure Location Lt brachial Position Sitting Pulse 104 H Pulse Source Pulse Oximeter Pulse Oximetry (%) 96 Oxygen Delivery Method Room Air Intake Visit Reasons: pe Counterintelligence Agent Required: No Accompanied by: Self / Same As Patient Allergies cephalexin [Keflex] Allergy (Unknown, Verified 07/12/23 10:57) hives Medication List - Last Reconciled 07/12/23 by River Kendrick MD etonogestrel (Nexplanon) subdermal Tobacco use date assessed: 07/12/23 Dental Screening Dental Screen Date: 07/12/23 Did you have a dental visit in the last 12 months?: No Did you have a dental problem in the last 6 months where you did not have access to dental care?: No Was dental information given to patient?: No HPI pe HPI Details Patient comes in today for her annual physical examination States that she's had recurrent symptoms of cough and cold since the beginning of May 2023 (about 6 to 7 weeks now) She denies any dizziness but relates (+) on and off headaches and increased nasal and sinus congestion; sometimes has pain in her sinuses, including over both of her jaw and behind her eyes and also has a recurrent sore throat for a while now She has also had a recurrent cough and has some lingering chest congestion for a while now; cough is mostly non-productive States that she has tested herself a few times for COVID and all of her tests have been negative She denies any fever Denies any chest pains, no increased SOB No nausea/vomiting, no abdominal pain No change in bowel habits noted Denies any acute urinary symptoms She is up-to-date with her annual mammogram but has not seen gynecology here at [facility] in over 2 years now States that she has been going to [facility] for the past couple of years since when she was but would like to go back to see Dr. Iverson as it is easier for her to come here [facility] Medical History Vitamin D deficiency Primary osteoarthritis of right knee Obesity (BMI 30-39.9) Rh negative, maternal High blood pressure affecting in third trimester, delivered Cyst of right breast Irregular menses Surgical History Hx of appendectomy Family History Mother HTN (hypertension) Social History Housing: House Alcohol intake: never Patient Tobacco Use Status: Former Tobacco user Years Smoked: pt states quit 3 yrs ago e-Cigarette/Vaping Use: Never Used Substance Use Type: Heroin service: No Current occupational status: employed Gender identity: Female Cognitive needs: No Hearing needs: No Vision needs: Yes Female Reproductive History Menstrual Age of Menarche: 14 Date of Mammogram: 06/27/23 Questionnaire PHQ-9 Over the last 2 weeks, how often have you been bothered by any of the following problems? 1. Little interest or pleasure in doing things: not at all 2. Feeling down, depressed, or hopeless: not at all 3. Trouble falling or staying asleep, or sleeping too much: not at all 4. Feeling tired or having little energy: not at all 5. Poor appetite or overeating: not at all 6. Feeling bad about yourself - or that you are a failure or have let yourself or your family down: not at all 7. Trouble concentrating on things, such as reading the newspaper or watching television: not at all 8. Moving or speaking so slowly that other people could have noticed. Or the opposite - being so fidgety or restless that you have been moving around a lot more than usual: not at all 9. Thoughts that you would be better off or of hurting yourself in some way: not at all Total score: 0 Depression Screening Interpretation: Negative Depression Screening Done: Yes 54229 - PHQ-9 Billing: Yes Source: Developed by Drs. Raul Chavez, Karol Yañez, Vincent Williamson and colleagues, with an educational adrianne from [email or web address]. Thrive Questionnaire Date Thrive assessed: 07/12/23 I am a: Patient What is your living situation today?: I have a steady place to live Within the past 12 months, did the food you bought not last and you didn't have the money to get more?: Never true Within the past 12 months, did you worry whether your food would run out before you got money to buy more?: Never true Do you have trouble paying for medicines?: No Do you have trouble getting transportation to medical appointments?: No Do you have trouble paying your heating and electricity bill?: No Do you have trouble taking care of your child, family member or friend?: No Do you have trouble with day-to-day activities such as bathing, preparing meals, shopping, managing finances, etc.?: No Are you currently unemployed and looking for a job?: No Are you interested in more education?: No Please select the resources that you would like help with: None Currently or been in a relationship where the following occur: no concerns reported THRIVE Score: 0 AUDIT C Alcohol Use Questionnaire (AUDIT-C) 1. How often do you have a drink containing alcohol?: Never 2. How many drinks containing alcohol do you have on a typical day when you are drinking?: 1 or 2 (0) 3. How often do you have six or more drinks on one occasion?: Never Total Score: 0 Score Reviewed/Action Taken: Yes JAROD-7 AMB Questionnaire JAROD-7 Date JAROD - 7 assessed: 07/12/23 Feeling nervous, anxious, or on edge: 0 = Not at all Not being able to stop or control worryin = Not at all Worrying too much about different things: 0 = Not at all Trouble relaxin = Not at all Being so restless that it is hard to sit still: 0 = Not at all Becoming easily annoyed or irritable: 0 = Not at all Feeling afraid as if something awful might happen: 0 = Not at all Total JAROD-7 score (0-4 normal; 5-9 mild; 10-14 moderate; 15-21 severe): 0 Source: Developed by Drs. Raul Chavez, Karol Yañez, Vincent Williamson and colleagues, with an educational adrianne from [email or web address]. Review of Systems Const Denies chills, Reports fatigue, Denies fever(s), Reports headache(s) (on and off) and Denies malaise Eyes Denies blurry vision, Denies change in vision, Denies irritation and Denies itchy eyes ENT Denies dysphagia, Denies dizziness, Denies otalgia (but reports (+) pressure in both ears lately), Reports headache(s) (on and off), Reports nasal congestion, Denies neck pain, Denies odynophagia, Reports sinus pain, Reports sinus pressure and Denies sore throat Card Denies chest pain, Denies rapid heart rate, Denies irregular heart rhythm, Denies palpitations and Denies dyspnea Resp Reports chest congestion (recurrent), Reports cough (on and off; non- productive), Denies pain with cough, Denies dyspnea and Denies wheezing GI Denies abdominal pain, Denies bloating, Denies constipation, Denies dysphagia, Denies heartburn, Denies diarrhea, Denies nausea, Denies odynophagia and Denies vomiting Denies hematuria, Denies urinary frequency, Denies dysuria, Denies urinary incontinence and Denies urinary urgency Musc Denies back pain, Denies arthralgias, Denies joint swelling, Denies muscle weakness and Denies neck pain Skin/Breast Denies breast pain, Denies breast mass, Denies change in pigmentation, Denies lesions, Denies rash and Denies unusual bruising Neuro Denies dizziness, Reports headache(s) (on and off) and Denies paresthesias Psych Denies anxiety and Denies depression Endo Reports fatigue and Denies palpitations Elan/Lymph Denies easy bruising Aller/Immun Denies itchy eyes and Denies wheezing Physical exam (Primary Care) Vital Signs: Last Vital Signs Pulse 104 H 07/12/23 10:22 BP 128/82 07/12/23 10:22 Pulse Ox 96 07/12/23 10:22 Oxygen Delivery Method Room Air 07/12/23 10:22 BMI result Body Mass Index 35.1 Tobacco/Smoking Status: Tobacco use Status Tobacco use date assessed 07/12/23 07/12/23 10:24 Patient Tobacco Use Status Former Tobacco user 07/12/23 10:24 e-Cigarette/Vaping Use Never Used 07/12/23 10:24 PHQ-9: PHQ-9 Score PHQ-9: Total score 0 07/12/23 10:24 Depression Screening Interpretation: Negative Thrive Assessment: Date of Thrive Assessment Date Thrive assessed 07/12/23 07/12/23 10:24 Currently or been in a relationship where the following occur: no concerns reported Const General: no acute distress, alert and awake Orientation/consciousness: patient oriented x3 HENMT Head: Yes normocephalic and Yes atraumatic Ears: external ears normal, TM's normal bilaterally and EAC's normal General nose exam: No nasal discharge present Face and sinus: Yes sinus tenderness (bilaterally) Teeth and gingiva: dentition normal Throat: Yes posterior oropharynx normal and Yes tonsils normal (no TP congestion) Eyes Eyelids: Yes eyelids normal Conjunctivae: conjunctivae normal Pupils: Equal, round and reactive pupils present EOM: EOMs intact bilaterally Neck Neck: Yes no lymphadenopathy and Yes supple Thyroid: Thyroid normal Resp Auscultation: no crackles, no rales, rhonchi (scattered bilaterally), no wheezes and bronchial breath sounds bilateral Cardio Rate: regular rate Rhythm: regular rhythm Heart sounds: no murmurs GI Palpation (GI): Soft to palpation, nontender and No hepatosplenomegaly present Auscultation: normal bowel sounds General: Yes no CVA tenderness Back/Spine/Pelvis Back: no CVA tenderness Thoracic/Lumbar Spine: thoracic and lumbar spine normal to inspection Skin Lesions: no lesions Rashes: no rashes Neuro General: patient oriented x3, moves all extremities, no focal motor deficits and CN's II-XI intact bilaterally Cranial nerves: Yes Equal, round and reactive pupils present Cognition (Neuro): normal cognition Gait exam (Neuro): Normal gait present Extrem General: Yes no clubbing, cyanosis or edema Assessment and Plan Assessment & Plan (1) Annual physical exam: Code(s): Z00.00 - Encounter for general adult medical examination without abnormal findings Plan: Check labs She is up-to-date with her annual mammogram but has not had a pap smear in a couple of years now She has been going to [facility] since her last but would like to switch back over to Dr. Iverson - referral done (2) Sinusitis: Code(s): J32.9 - Chronic sinusitis, unspecified Qualifiers: Sinusitis location: unspecified location Chronicity: acute Recurrence: non-recurrent Qualified Code(s): J01.90 - Acute sinusitis, unspecified Plan: Will start her on Augmentin 875 mg BID x 10 days (3) Bronchitis: Code(s): J40 - Bronchitis, not specified as acute or chronic Plan: She is advised that this should also clear up with Tx with Augmentin x 10 days (4) Impaired fasting glucose: Code(s): R73.01 - Impaired fasting glucose Plan: Reinforced low calorie diet/low carb diet and advised again that exercising regularly and losing some weight should also help Will recheck her FBS and HgbA1c for follow up (5) Primary osteoarthritis of right knee: Code(s): M17.11 - Unilateral primary osteoarthritis, right knee Plan: X-rays of the right knee done back in May 2022 revealed (+) very mild degenerative change of the medial joint space compartment of the right knee Continue OTC Tylenol or Ibuprofen as needed for increased knee pain Will again consider referring her to orthopedics if her knee pain gets progressively worse (6) Vitamin D deficiency: Code(s): E55.9 - Vitamin D deficiency, unspecified Plan: Continue OTC Vitamin D3 2000 units QD (7) Obesity (BMI 30-39.9): Code(s): E66.9 - Obesity, unspecified Plan: Reinforced diet/exercise as tolerated/lose weight (8) Cervical cancer screening: Code(s): Z12.4 - Encounter for screening for malignant neoplasm of cervix Plan: Per request, will refer her back to Dr. Iverson for her annual pap smear and gynecology exam Plan Follow up in 4 months Orders: Orders TSH reflex Free T4 Today E78.00 - Pure hypercholesterolemia, unspecified, Z00.00 - Encounter for general adult medical examination without abnormal findings UA CC w/rflx Micro + Cult Today R30.0 - Dysuria, Z00.00 - Encounter for general adult medical examination without abnormal findings Vitamin D 25-OH Total Today E55.9 - Vitamin D deficiency, unspecified, Z00.00 - Encounter for general adult medical examination without abnormal findings Hemoglobin A1c Today R73.01 - Impaired fasting glucose, Z00.00 - Encounter for general adult medical examination without abnormal findings Complete Blood Count Auto Diff Today D64.9 - Anemia, unspecified, Z00.00 - Encounter for general adult medical examination without abnormal findings Comprehensive [place]. Panel Fast Today E78.00 - Pure hypercholesterolemia, unspecified, Z00.00 - Encounter for general adult medical examination without abnormal findings Lipid Panel Today E78.00 - Pure hypercholesterolemia, unspecified, Z00.00 - Encounter for general adult medical examination without abnormal findings Referrals CREDIT CARD INTERVIEWER Referral Z12.4 - Encounter for screening for malignant neoplasm of cervix Medications: New amoxicillin-pot clavulanate 875-125 mg 1 tab PO BID 10 days 20 tabs 0RF Coding Level of Care Code Est Pt Prev Care 40-64y(93879) Diagnoses Annual physical exam Z00.00 Acute non-recurrent sinusitis, unspecified location J01.90 Sinusitis location: unspecified location Chronicity: acute Recurrence: non-recurrent Bronchitis J40 Impaired fasting glucose R73.01 Primary osteoarthritis of right knee M17.11 Vitamin D deficiency E55.9 Obesity (BMI 30-39.9) E66.9 Cervical cancer screening Z12.4
== END 2023-07-12 11:15 | disposition home or self-care (01) ==
PROVIDERS: PCP Internal Medicine; Visit Provider Internal Medicine
DX: Z00.00 Encounter for general adult medical examination without abnormal findings (principal); E66.9 Obesity, unspecified; J01.90 Acute sinusitis, unspecified; Z68.35 Body mass index [BMI] 35.0-35.9, adult; J40 Bronchitis, not specified as acute or chronic; R73.01 Impaired fasting glucose; M17.11 Unilateral primary osteoarthritis, right knee; E55.9 Vitamin D deficiency, unspecified
CPT/HCPCS: 99396

== ENCOUNTER 2023-07-19 08:06 | Outpatient (REF) | payer OTHER, SELFPAY ==
[2023-07-19 10:23] LABS: Appearance Urine Clear; Color Urine Yellow; Glucose Urine UA Negative (Negative); Leukocyte Esterase Urine Negative (Negative); MANUAL DIFF FLAG NO; Nitrite Urine Negative (Negative); PH 6.5 (5.0-9.0); Urine Blood Negative (Negative); Urine Ketones Negative (Negative); Urine Protein Negative (Neg-Trace)
[2023-07-19 10:31] LABS: Basophils Percent Auto 0.3 % (0-2); Eosinophils Percent Auto 0.7 % (0-4); Hematocrit 38.3 % (37.0-47.0); Hemoglobin 12.8 g/dl (12.0-16.0); Imm Gran Abs Auto 0.02 X10*3/uL (0.00-0.03); Imm Gran Pct Auto 0.3 % (0.0-0.4); Lymphocytes Absolute Auto 2.1 X10*3/uL (1.2-4.9); Lymphocytes Percent Auto 35.3 % (20-40); Mean Corpuscular HGB Conc 33.4 g/dl (31.0-35.0); Mean Corpuscular Hemoglobin 27.8 pg (27.0-33.0); Mean Corpuscular Volume 83.1 fL (80.0-98.0); Mean Platelet Volume 8.9 fL (9.4-12.3); Monocytes Absolute Auto 0.4 X10*3/uL (0.1-1.2); Monocytes Percent Auto 7.2 % (2-11); Neutrophils Absolute Auto 3.4 x10*3/uL (2.0-8.3); Neutrophils Percent Auto 56.2 % (45-73); Platelet Count 264 X10*3/uL (160-400); Red Blood Count 4.61 X10*6/uL (4.20-5.50); Red Cell Distribution Width 12.9 % (11.0-16.0)
[2023-07-19 11:12] LABS: Alanine Aminotransferase 40 U/L (0-31); Albumin Level 4.2 g/dL (3.5-5.0); Alkaline Phosphatase 61 U/L (39-117); Anion Gap 13 (12-20); Aspartate Amino Transferase 20 U/L (5-31); Bilirubin Total 0.7 mg/dL (0.0-1.0); Blood Urea Nitrogen 12 mg/dL (9-16); Calcium 9.4 mg/dL (8.4-10.2); Carbon Dioxide 23 mmol/L (22-29); Chloride 107 mmol/L (96-108); Cholesterol 126 mg/dL (<200); Estimated Glomerular Filt Rate > 60; Glucose Fasting 83 mg/dL (60-99); HDL Cholesterol 51 mg/dL (>40); LDL Cholesterol Calculated 62 mg/dL (<100); Potassium 3.8 mmol/L (3.3-5.1); Sodium 139 mmol/L (135-145); Total Protein 7.1 g/dL (6.5-8.0); Triglycerides 65 mg/dL (<150)
[2023-07-19 11:17] LABS: TSH reflex Free T4 0.73 uIU/mL (0.32-4.0); Vitamin D 25-OH Total 44.2 ng/mL (>30)
[2023-07-19 16:13] LABS: Estimated Average Glucose 100 mg/dL; Hemoglobin A1c % 5.1 % (<6.0)
== END 2023-07-19 08:07 | disposition home or self-care (01) ==
LOC: HO.HMGCLDS 08:06
PROVIDERS: PCP Internal Medicine; Visit Provider Internal Medicine
DX: Z00.00 Encounter for general adult medical examination without abnormal findings (principal); R73.01 Impaired fasting glucose; R30.0 Dysuria; E78.00 Pure hypercholesterolemia, unspecified; E55.9 Vitamin D deficiency, unspecified; D64.9 Anemia, unspecified
CPT/HCPCS: 36415; 80053; 80061; 81003; 82306; 83036; 84443; 85025

== ENCOUNTER 2023-08-01 13:06 | Outpatient (REF) | payer OTHER, SELFPAY | END 2023-08-01 13:07 | disposition home or self-care (01) | LOC: HO.MAMMO 13:06 | PROVIDERS: PCP Internal Medicine; Visit Provider Internal Medicine | DX: Z13.89 Encounter for screening for other disorder (principal) ==

== ENCOUNTER 2023-11-14 10:04 | Outpatient (AMB) | payer OTHER, SELFPAY ==
[2023-11-14 10:07] VITALS: BP 138/90; PULSE 83; O2SAT 96; BMI 35.4
--- NOTE | 2023-11-14 10:07 | A.OFFPC_ITS ---
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 Allergies cephalexin [Keflex] Allergy (Unknown, Verified 11/14/23 10:47) hives Medication List - Last Reconciled 11/14/23 by River Kendrick MD etonogestrel (Nexplanon) subdermal Tobacco use date assessed: 07/12/23 Dental Screening Dental Screen Date: 11/14/23 HPI 4mth f/u HPI Details Patient comes in today for her follow up visit States that she has been experiencing increasing pain over her right knee lately Notes that her knee feels worse at the end of the day - knee would throb and ache so much that she sometimes has a hard time sleeping at night 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 and also has a 2 year old that she has to run after constantly when she gets home Recalls getting x-rays of her knee last year that showed (+) OA changes - is wondering if she should get any further imaging studies for further evaluation States that she feels okay otherwise She denies any headaches or dizziness Denies any chest pains, no SOB No nausea/vomiting, no abdominal pain No change in bowel habits noted She denies any acute urinary symptoms Would also like to go over the results of her labs done back in June 2023 [facility] Medical History Vitamin D deficiency Primary osteoarthritis of right knee Obesity (BMI 30-39.9) Rh negative, maternal High blood pressure affecting in third trimester, delivered Cyst of right breast Irregular menses Surgical History Hx of appendectomy Family History Mother HTN (hypertension) Social History Housing: House Alcohol intake: never Patient Tobacco Use Status: Former Tobacco user Years Smoked: pt states quit 3 yrs ago e-Cigarette/Vaping Use: Never Used Substance Use Type: Heroin service: No Current occupational status: employed Gender identity: Female Cognitive needs: No Hearing needs: No Vision needs: Yes Female Reproductive History Menstrual Age of Menarche: 14 Questionnaire Thrive Questionnaire Date Thrive assessed: 07/12/23 I am a: Patient What is your living situation today?: I have a steady place to live Within the past 12 months, did the food you bought not last and you didn't have the money to get more?: Never true Within the past 12 months, did you worry whether your food would run out before you got money to buy more?: Never true Do you have trouble paying for medicines?: No Do you have trouble getting transportation to medical appointments?: No Do you have trouble paying your heating and electricity bill?: No Do you have trouble taking care of your child, family member or friend?: No Do you have trouble with day-to-day activities such as bathing, preparing meals, shopping, managing finances, etc.?: No Are you currently unemployed and looking for a job?: No Are you interested in more education?: No Please select the resources that you would like help with: None Currently or been in a relationship where the following occur: no concerns reported THRIVE Score: 0 AUDIT C Alcohol Use Questionnaire (AUDIT-C) 1. How often do you have a drink containing alcohol?: Never 2. How many drinks containing alcohol do you have on a typical day when you are drinking?: 1 or 2 (0) 3. How often do you have six or more drinks on one occasion?: Never Total Score: 0 Score Reviewed/Action Taken: Yes JAROD-7 AMB Questionnaire JAROD-7 Date JAROD - 7 assessed: 07/12/23 Source: Developed by Drs. Raul Chavez, Karol Yañez, Vincent Williamson and colleagues, with an educational adrianne from [employer]. Review of Systems Const Denies chills, Denies fatigue, Denies fever(s) and Denies headache(s) ENT Denies dysphagia, Denies dizziness, Denies otalgia, Denies headache(s), Denies neck pain, Denies odynophagia and Denies sore throat Card Denies chest pain, Denies irregular heart rhythm, Denies palpitations and Denies dyspnea Resp Denies cough, Denies dyspnea and Denies wheezing GI Denies abdominal pain, Denies constipation, Denies dysphagia, Denies heartburn, Denies diarrhea, Denies nausea, Denies odynophagia and Denies vomiting Denies difficulty voiding, Denies dysuria, Denies urinary incontinence and Denies urinary urgency Musc Denies back pain, Reports arthralgias (increasing over the right knee lately), Denies joint swelling and Denies neck pain Skin/Breast Denies rash Neuro Denies dizziness, Denies headache(s) and Denies paresthesias Psych Denies anxiety and Denies depression Endo Denies fatigue and Denies palpitations Elan/Lymph Denies easy bruising Aller/Immun Denies wheezing Physical exam (Primary Care) Vital Signs: Last Vital Signs Pulse 83 11/14/23 10:07 BP 138/90 H 11/14/23 10:07 Pulse Ox 96 11/14/23 10:07 Oxygen Delivery Method Room Air 11/14/23 10:07 BMI result Body Mass Index 35.4 Tobacco/Smoking Status: Tobacco use Status Tobacco use date assessed 07/12/23 11/14/23 10:08 Patient Tobacco Use Status Former Tobacco user 11/14/23 10:08 e-Cigarette/Vaping Use Never Used 11/14/23 10:08 Thrive Assessment: Date of Thrive Assessment Date Thrive assessed 07/12/23 11/14/23 10:08 Currently or been in a relationship where the following occur: no concerns reported Const General: no acute distress and alert HENMT Ears: TM's normal bilaterally and EAC's normal Throat: Yes posterior oropharynx normal and Yes tonsils normal (no TP congestion) Neck Neck: Yes no lymphadenopathy and Yes supple Thyroid: Thyroid normal Resp Auscultation: clear to auscultation bilaterally, no rales and no wheezes Cardio Rate: regular rate Rhythm: regular rhythm Heart sounds: no murmurs GI Palpation (GI): Soft to palpation and nontender Auscultation: normal bowel sounds General: Yes no CVA tenderness Back/Spine/Pelvis Back: no CVA tenderness Thoracic/Lumbar Spine: No lumbar spinal tenderness Skin Rashes: no rashes Extrem General: Yes no clubbing, cyanosis or edema Right lower extremity: knee Details: tenderness Location: of the infrapatellar area and normal ROM; no swelling and no crepitus Results Reviewed Results Reviewed: Laboratory Tests 07/19/23 08:12 WBC 6.0 Hgb 12.8 Hct 38.3 Plt Count 264 Sodium 139 Potassium 3.8 Creatinine 0.67 Estimated GFR > 60 Fasting Glucose 83 Hemoglobin A1c % 5.1 Calcium 9.4 AST 20 ALT 40 H Triglycerides 65 Cholesterol 126 LDL Cholesterol, Calc 62 HDL Cholesterol 51 25-OH Vitamin D Total 44.2 TSH 0.73 Ur Specific [place] 1.020 Urine Protein Negative Urine Glucose (UA) Negative Urine Blood Negative Urine Nitrite Negative Ur Leukocyte Esterase Negative Assessment and Plan Assessment & Plan (1) Impaired fasting glucose: Code(s): R73.01 - Impaired fasting glucose Plan: Results of her labs done back in June 2023 reviewed and discussed with patient - she is advised that her FBS and HgbA1c were both normal when checked a few months ago - HgbA1c was at 5.1% Reinforced low calorie diet/low carb diet and reminded again that exercising regularly and losing some weight should help (2) Primary osteoarthritis of right knee: Code(s): M17.11 - Unilateral primary osteoarthritis, right knee Plan: X-rays of the right knee done back in May 2022 revealed (+) very mild degenerative change of the medial joint space compartment of the right knee Continue OTC Tylenol or Ibuprofen as needed for knee pain As she has been reporting increasing right knee pain lately, will now refer her to orthopedics for further evaluation and management (3) Vitamin D deficiency: Code(s): E55.9 - Vitamin D deficiency, unspecified Plan: Continue OTC Vitamin D3 2000 units QD (4) Elevated ALT measurement: Code(s): R74.01 - Elevation of levels of liver transaminase levels Plan: Her ALT is slightly elevated on her recent labs; AST is normal Patient states that she does not drink any alcohol and does not really take any Rx with Tylenol in it Discussed that this is likely due to her weight and should improve with weight loss Will recheck her LFTs for follow up when she presents for her next annual physical exam (5) Obesity (BMI 30-39.9): Code(s): E66.9 - Obesity, unspecified Plan: Reinforced diet/exercise as tolerated/lose weight Plan To return in June 2024 for her next annual physical examination Orders: Referrals Orthopedics Referral M25.561 - Pain in right knee Coding Level of Care Code Est Pt Level 4 (60438) Diagnoses Impaired fasting glucose R73.01 Primary osteoarthritis of right knee M17.11 Vitamin D deficiency E55.9 Elevated ALT measurement R74.01 Obesity (BMI 30-39.9) E66.9
[2023-11-14 10:45] VITALS: BP 120/86
== END 2023-11-14 10:49 | disposition home or self-care (01) ==
PROVIDERS: PCP Internal Medicine; Visit Provider Internal Medicine
DX: R73.01 Impaired fasting glucose (principal); M17.11 Unilateral primary osteoarthritis, right knee; E55.9 Vitamin D deficiency, unspecified; R74.01 Elevation of levels of liver transaminase levels
CPT/HCPCS: 99214

== ENCOUNTER 2023-12-23 08:15 | Outpatient (REF) | payer OTHER, SELFPAY ==
--- NOTE | ~2023-12-23 | XR_ITS ---
EXAMINATION: XR KNEE, RIGHT XR KNEE AP STANDING CLINICAL INFORMATION: Unilateral primary osteoarthritis of the right knee. COMPARISON: None TECHNIQUE: Lateral and axial of the right knee were obtained. AP bilateral standing view of the knees was obtained. FINDINGS: Bony alignment and mineralization are normal. No fracture, dislocation or right knee joint effusion is seen. There is mild to moderate asymmetric narrowing of the bilateral medial joint space compartments. The bilateral lateral and right patellofemoral joint space compartments are well-maintained. No foreign body is seen. XR/XR knee RT 3V IMPRESSION: 1. No fracture, dislocation or right knee joint effusion is seen. 2. There is mild to moderate osteoarthritic change of the medial joint space compartments of the bilateral knees. Electronically signed by: Boyd Robles MD 01/16/2024 03:40 PM EDT
== END 2023-12-23 08:16 | disposition home or self-care (01) ==
LOC: HO.HOSX 08:15
PROVIDERS: Visit Provider Physician Assistant
DX: M17.0 Bilateral primary osteoarthritis of knee (principal)
CPT/HCPCS: 73562; 99202

== ENCOUNTER 2023-12-23 09:31 | Outpatient (AMB) | payer OTHER, SELFPAY ==
[2023-12-23 09:38] VITALS: BMI 35.4
--- NOTE | 2023-12-23 09:38 | A.OFFVIS_ITS ---
Vital Signs 12/23/23 09:38 Height 5 ft 3 in Weight 200 lb BMI 35.4 Intake Visit Reasons: New Pt - right knee pain Intake Note: Jesica a 43 year old female who presents today for a new patient evaluation of right knee pain. Patient reports her pain has been present for years and has a history of cortisone injections in the past. Her pain returned last June that comes and goes. States she is unable to squat or cross her legs. She describes her pain as an ache however her knee will buckle causing sharp pains. Her pain is located at the anterior aspect and occasionally the posterior aspect of knee. Limited ROM. She tried and failed knee bracing and different soles in shoes. Allergies cephalexin [Keflex] Allergy (Unknown, Verified 12/23/23 09:44) hives Medication List - Last Reconciled 12/23/23 by Kelby Alvarado PA-C etonogestrel (Nexplanon) subdermal HPI HPI New Pt - right knee pain: Details: Jesica is a 43-year-old female who presents today for a follow-up for an evaluation of right knee pain. She claims that the pain she has been experiencing for years has been treated with cortisone injections in the past. She reports that since June of last year, she started experiencing intermittent discomfort. She claims that she cannot cross her legs or squat. She does have limited ROM. She claims to be stiff, and her pain changes daily and has a feeling of rubbing sensation. Her knee will buckle that cause her excruciating pain. She has tried different shoe bottoms and knee bracing which did not gave her relief. She has a history of injection. She has been taking Advil and Tylenol as needed with mild relief. [facility] Medical History Vitamin D deficiency Primary osteoarthritis of right knee Obesity (BMI 30-39.9) Rh negative, maternal High blood pressure affecting in third trimester, delivered Cyst of right breast Irregular menses Surgical History Hx of appendectomy Family History Mother HTN (hypertension) Social History (Updated 12/23/23 @ 09:45 by Judy Nava Antoinette) Housing: House Alcohol intake: never Patient Tobacco Use Status: Former Tobacco user Years Smoked: pt states quit 3 yrs ago e-Cigarette/Vaping Use: Never Used Substance Use Type: Heroin service: No Current occupational status: employed 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 Gender identity: Female Cognitive needs: No Hearing needs: No Vision needs: Yes Female Reproductive History Menstrual Age of Menarche: 14 Review of Systems Const All systems reviewed & are unremarkable except as noted in HPI and below Physical Exam Vital Signs: BMI result Body Mass Index 35.4 Const General: cooperative, healthy appearing, comfortable and no acute distress Orientation/consciousness: patient oriented x3 Neck Neck: Yes normal visual inspection and Yes no JVD Chest Chest palpation & inspection: normal inspection of the chest Resp Effort & Inspection: normal respiratory effort Auscultation: clear to auscultation bilaterally, crackles (no), rales (no), rhonchi (no) and wheezes (no) Cardio Jugular venous distension: no JVD Rate: regular rate Rhythm: regular rhythm Heart sounds: S1 normal heart sound present, S2 normal heart sound present, Murmur heart sound present (no) and Rub heart sound present (no) Neuro General: patient oriented x3 Extrem Other: Right knee: Skin intact, no erythema or joint effusion. Tenderness along the lateral retropatellar. Full ROM with crepitus. Negative Drake?s. No ligamentous laxity. NVI. pain General: Yes normal to inspection, Yes no pedal edema and Yes no calf tenderness Psych Appearance: grossly normal Mental Status: mental status grossly normal Speech and movement: Normal speech and movement present Results Reviewed Results Reviewed: Xrays were obtained in the office today and personally reviewed by me of the right knee show lateralization of the patella. Assessment & Plan Assessment & Plan (1) Patellofemoral arthritis of right knee: Code(s): M17.11 - Unilateral primary osteoarthritis, right knee Category: Medical Plan I sent her a prescription of Celebrex to the pharmacy. We discussed options which include PT, NSAIDs and injections. The patient will defer on the injection today and proceed with PT and NSAIDs. If symptoms persist, she will contact me for an injection, otherwise, PRN. She was also fit for a knee brace in the office today. Orders: Orders XR knee RT 3V Today M17.11 - Unilateral primary osteoarthritis, right knee PT Evaluation and Treatment Today M17.11 - Unilateral primary osteoarthritis, right knee Medications: New celecoxib (Celebrex) 200 mg PO BID 60 caps 3RF 30 days Patient Instructions: Scribed for Kelby Alvarado PA-C, by Nitin Durham medical laboratory technician, on 12/23/2023 at 9:30 AM EST. I, Kelby Alvarado PA-C, have personally reviewed and agree with the information entered by the scribe. Coding Level of Care Code New Pt Level 3 (34819) Diagnoses Patellofemoral arthritis of right knee M17.11
== END 2023-12-23 10:29 | disposition home or self-care (01) ==
PROVIDERS: PCP Internal Medicine; Visit Provider Physician Assistant
DX: M17.11 Unilateral primary osteoarthritis, right knee (principal)
CPT/HCPCS: 99203

== ENCOUNTER 2024-01-03 12:55 | Outpatient (REF) | payer OTHER, SELFPAY ==
--- NOTE | ~2024-01-03 | MM_ITS ---
EXAMINATION: MM DIAGNOSTIC DIGITAL BREAST TOMOSYNTHESIS, RIGHT CLINICAL INFORMATION: Follow-up calcifications right breast upper outer quadrant middle one third. (First 6 month follow-up) COMPARISON: Mammography: 06/27/2023, 07/01/2022, 06/24/2022, 04/13/2016. TECHNIQUE: Digital right breast tomosynthesis is performed in the following views: Full-field 3-D right CC, right MLO views, as well as 2-D spot magnification right CC and ML views. FINDINGS: There are scattered areas of fibroglandular density (ACR BI-RADS breast composition Category b). In the upper outer quadrant of the right breast, mid middle one third, there are stable grouped calcifications without any aggressive changes when compared with prior magnification views. These remain probably benign, and six-month interval follow-up recommended when the patient is due for bilateral screening. No additional abnormal findings right breast. MM/MM tomosynthesis diagnostic RT IMPRESSION: -There are no findings suspicious for malignancy in the right breast. -Grouped calcifications in the right breast upper outer quadrant, middle one third, remaining probably benign and unchanged without any aggressive changes. Six-month follow-up magnification views recommended to establish 1+ year stability, when the patient is due for bilateral screening. ASSESSMENT: BI-RADS BI-RADS 3 - Probably benign finding(s) - 6 month follow-up suggested RECOMMENDATION: 6 Month F/U Results were provided to the patient at time of visit by the technologist. This patient's information was entered into a reminder system with a target due date for their next mammogram.
== END 2024-01-03 12:56 | disposition home or self-care (01) ==
LOC: HO.MAMMO 12:55
PROVIDERS: PCP Internal Medicine; Visit Provider Internal Medicine
DX: R92.1 Mammographic calcification found on diagnostic imaging of breast (principal)
CPT/HCPCS: 77061; 77065

== ENCOUNTER → 2024-01-03 13:00 | Outpatient (BNV) | payer OTHER, SELFPAY | PROVIDERS: PCP Internal Medicine; Visit Provider Radiology Diagnostic Radiology | DX: R92.1 Mammographic calcification found on diagnostic imaging of breast (principal) | CPT/HCPCS: 77061; 77065 ==

== ENCOUNTER 2024-02-01 09:27 | Outpatient (AMB) | payer OTHER, SELFPAY ==
--- NOTE | 2024-02-01 09:30 | MHC.OFFVIS ---
Vital Signs 02/01/24 09:32 Height 5 ft 3 in Weight 202 lb BMI 35.8 BP 124/86 Intake Visit Reasons: New patient Annual Intake Note: Last pap 2 yrs [facility] +HPV Sales Program Coordinator: Sales Program Coordinator Present (Nancy) Allergies cephalexin [Keflex] Allergy (Unknown, Verified 12/23/23 09:44) hives HPI Comments Details: She is a premenopausal woman presenting for a new patient annual examination. Doing well with no concerns. Interested in a tubal ligation, current Nexplanon uses, inserted or 04/2021. Had several Mirena is in the past and was happy when she use those devices. The Nexplanon was inserted and reports she was not given the option at that time. She tries to eat healthy and stays active with exercise, some issues w/her right knee, in PT. Currently is sexually active. She denies vaginal itching and irritation. STI screening offered; she accepts. Denies family history of breast or colon cancer. FH ovarian cancer-mother. Last pap smear 2 years ago, negative. She reports history of HPV. Mammogram: 2023, has six-month follow-up scheduled due to calcifications. 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 Gender identity: Female Cognitive needs: No Hearing needs: No Vision needs: Yes Female Reproductive History Menstrual Age of Menarche: 14 control method: implanted (Nexplanon 05/04/21) Total pregnancies: 5 Full term: 2 Number of Living Children: 2 Ab induced: 1 Ab spontaneous: 2 Date of last pap smear: 04/10/16 (neg pap and hpv) History of abnormal pap smear: Yes (15 +hpv 04/29 ascus) Date of Mammogram: 01/03/24 ([facility] 3) Review of Systems Const All systems reviewed & are unremarkable except as noted in HPI and below Reports as per HPI Eyes Reports no additional complaints ENT Reports no additional complaints Card Reports no additional complaints Resp Reports no additional complaints GI Reports as per HPI and Reports no additional complaints Reports as per HPI Musc Reports no additional complaints Skin/Breast Reports as per HPI Neuro Reports no additional complaints Psych Reports no additional complaints Endo Reports no additional complaints Elan/Lymph Reports no additional complaints Aller/Immun Reports no additional complaints Physical Exam Vital Signs: Last Vital Signs BP 124/86 02/01/24 09:32 BMI result Body Mass Index 35.8 Const General: cooperative, healthy appearing, no acute distress, well developed and alert Orientation/consciousness: patient oriented x3 HEENT Head: Yes normal to inspection Eyes General: appearance normal, both eyes and all related structures Neck Neck: Yes normal visual inspection Thyroid: Thyroid normal Chest Chest palpation & inspection: normal inspection of the chest and other (no puckering, dimpling, peau de orange, retraction, discharge, masses) Breast/axilla inspection: normal inspection of the breasts Breast/axilla palpation: normal palpation of the breasts Resp Effort & Inspection: normal respiratory effort GI Inspection: Yes normal to inspection Palpation (GI): Soft to palpation Rectal Exam - Female: deferred General: Yes bladder normal to palpation External Female Exam: normal external appearance and normal appearance of the urethra Speculum Exam - Vagina: normal appearance of the vagina, normal palpation and normal vaginal discharge Speculum Exam - Cervix: normal appearance of the cervix and normal palpation Bimanual exam- vagina & uterus: normal bimanual exam, normal palpation, uterine size normal, bladder normal to palpation, normal palpation and non-tender Bimanual Exam- Adnexa, other: no masses Skin General skin exam: no rashes or lesions noted Rashes: no rashes Neuro General: patient oriented x3 Cognition (Neuro): normal cognition Extrem General: Yes normal to inspection Psych Attitude: cooperative Thought process: Normal thought process present Assessment & Plan Assessment & Plan (1) Encounter for well woman exam with routine gynecological exam: Code(s): Z01.419 - Encounter for gynecological examination (general) (routine) without abnormal findings Category: Medical Plan Discussed: Current recommendations for pap smears per ASCCP guidelines. Breast awareness and periodic breast exams. Maintain a healthy lifestyle including a well balanced diet and routine exercise. Use condoms for STI and prevention. She declines STD blood work today. Mammogram yearly has follow up booked. Schedule Nexplanon removal and Mirena insert same day procedure. Counseled on her options, with use of CDC efficacy guidelines and product description, use of models. Patient verbalizes understanding and agrees to the plan of care. She was given opportunity to ask questions and all questions were answered to the best of my ability. RTO in one year for annual epic director examination. This note is constructed using voice recognition software. While every effort has been made to ensure accuracy, injection wax molder errors may have been included. Orders: Orders Bacterial Vaginosis Panel Today Z20.2 - Contact with and (suspected) exposure to infections with a predominantly sexual mode of transmission CT NG by PCR Today Z20.2 - Contact with and (suspected) exposure to infections with a predominantly sexual mode of transmission PAP + HPV E6/E7 rfx 18/45 Today Z01.419 - Encounter for gynecological examination (general) (routine) without abnormal findings Coding Level of Care Code New Pt Prev Care 40-64y(55147) Diagnoses Encounter for well woman exam with routine gynecological exam Z01.419
[2024-02-01 09:32] VITALS: BP 124/86; BMI 35.8
== END 2024-02-01 11:22 | disposition home or self-care (01) ==
PROVIDERS: PCP Internal Medicine; Visit Provider Advanced Practice Midwife
DX: Z01.419 Encounter for gynecological examination (general) (routine) without abnormal findings (principal)
CPT/HCPCS: 99386

== ENCOUNTER 2024-02-01 09:27 | Outpatient (REF) | payer OTHER, SELFPAY ==
[2024-02-01 13:01] LABS: Bacterial Vaginosis PCR NEGATIVE (Negative); Candida Group PCR NOT DETECTED (Not Detect); Candida glab krusei PCR NOT DETECTED (Not Detect); Trichomonas vaginalis PCR NOT DETECTED (Not Detect)
[2024-02-01 15:55] LABS: CT PCR NOT DETECTED (Not Detect.); NG PCR NOT DETECTED (Not Detect.)
[2024-02-04 03:18] LABS: HPV 16 RNA DETECTED (NOT DETECTED); HPV mRNA E6/E7 Detected (Not Detected)
== END 2024-02-01 09:28 | disposition home or self-care (01) ==
LOC: HO.LAB 09:27
PROVIDERS: PCP Internal Medicine; Visit Provider Advanced Practice Midwife
DX: Z01.419 Encounter for gynecological examination (general) (routine) without abnormal findings (principal); Z20.2 Contact with and (suspected) exposure to infections with a predominantly sexual mode of transmission
CPT/HCPCS: 0352U; 36415; 87491; 87591; 87624; 87625; 88175; 99386

== ENCOUNTER 2024-02-01 10:15 | Outpatient (REF) | payer OTHER, SELFPAY | END 2024-02-01 10:16 | disposition home or self-care (01) | LOC: HO.LNP 10:15 | PROVIDERS: Visit Provider Advanced Practice Midwife | DX: Z13.89 Encounter for screening for other disorder (principal) ==

== ENCOUNTER 2024-04-06 10:06 | Outpatient (AMB) | payer OTHER, SELFPAY ==
[2024-04-06 10:11] VITALS: BP 132/80
--- NOTE | 2024-04-06 10:11 | MHC.OFFVIS ---
Vital Signs 04/06/24 10:11 Height 5 ft 3 in BP 132/80 Intake Visit Reasons: Nexplanon removal and Mirena insertion/45 min Intake Note: Patient currently on period, she advised she'd like the removal of Nexplanon during todays appointmentand reschedule for insertion of Mirena. High Heel Builder Required: No Information Interpreted: non-clinical & clinical Instrument Mechanic Weapons System: Instrument Mechanic Weapons System Present (Laura/ ABHISHEK Fuentes) Accompanied by: Self / Same As Patient Allergies cephalexin [Keflex] Allergy (Unknown, Verified 04/06/24 10:12) hives Is last menstrual period known: Yes HPI Comments Details: Patient is here today for a Nexplanon removal and a Mirena insertion, started her menstrual cycle today, feels uncomfortable prefers not to have her Mirena inserted at this time. She has not been sexually active, denies any risk to . 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 Gender identity: Female Cognitive needs: No Hearing needs: No Vision needs: Yes Female Reproductive History Menstrual Age of Menarche: 14 Review of Systems Const All systems reviewed & are unremarkable except as noted in HPI and below Endo Reports no additional complaints Physical Exam Vital Signs: Last Vital Signs BP 132/80 04/06/24 10:11 Const General: cooperative, healthy appearing and no acute distress Extrem Other: Implant palpable superficial and nontender in the upper inner left arm Psych Appearance: well kempt Attitude: cooperative Thought process: Normal thought process present Office Procedures Contraception Insert/Removal Details Details: Nexplanon Removal Procedure Nexplanon Removal Counseling: The patient was counseled regarding Nexplanon removal procedure risks for: pain, infection bleeding, bruising , swelling scarring, injury to nerves, blood vessels, and surrounding tissue. ?All questions were answered. ?The patient has signed the consent form and desires to proceed with the procedure. Nexplanon Removal Procedure: The patient was placed in a supine position with her non dominant left hand resting under her head. The insertion site was located: 8-10cm from the medial epicondyle notch of the humerus, posterior to the sulcus, between the triceps and biceps muscle. The area of the ?implant was identified and the distal tip located. This area was cleansed with an alcohol prep and 1 ml of 1% Lidocaine on a 25 gauge needle and syringe was utilized for adequate anesthesia to the insertion site. After ascertaining adequate anesthesia, the area was prepped with Betadine solution. The skin over the distal tip was incised with a #11 blade scalpel and the capsule was located and entered freeing the implant from the canal. The implant was removed with a gentle tug using a mosquito clamp and removed intact. Direct pressure was applied to the insertion site for hemostasis, minimal bleeding was observed. Steri strips, Tegaderm covering, gauze pads, and Juliana wrap dressing were secured with paper tape. Nexplanon Removal Post Care Instructions: You may expect mild tenderness, swelling, and bruising from the area. If no allergies, you may use a mild over the counter analgesic like Tylenol or Advil (follow the manufacturers recommendations on dosing and frequency of use). Call the office if any symptoms and including: fever (over 100.4), flu like symptoms, signs of infection-redness, pus drainage, pain (beyond usual healing). Keep the pressure dressing on and clean and dry for 24 hours, then remove it. You may take the steri strips and Tegaderm off in 5-7 days, or sooner if peeling off on its own. The patient tolerated the procedure well and left the office in good condition. This note is constructed using voice recognition software. ?While every effort has been made to ensure accuracy, machine setter supervisor errors may have been included. ? 94257 - Removal Results AMB Test Urine AMB Test Urine Negative Last Edit by Yaritza Hernandez CMA on 04/06/24 10:21 Results Reviewed Results Reviewed: Laboratory Last Values [facility]st Clinic Negative 11/15/24 10:21 Assessment & Plan Assessment & Plan (1) Nexplanon removal: Code(s): Z30.46 - Encounter for surveillance of implantable subdermal contraceptive Plan See procedure notes. Patient to reschedule the Mirena IUD insertion and is aware if she does become sexually active she would need to use condoms for protection as a backup method. This note is constructed using voice recognition software. While every effort has been made to ensure accuracy, machine setter supervisor errors may have been included. Orders: Orders AMB HCG Urine Test Today Z32.02 - Encounter for test, result negative Coding Level of Care Code Procedure Only Diagnoses Nexplanon removal Z30.46 CPT Codes Details - Contraception: 87006 - Removal ([id number])
== END 2024-04-06 10:57 | disposition home or self-care (01) ==
PROVIDERS: PCP Internal Medicine; Visit Provider Advanced Practice Midwife
DX: Z30.46 Encounter for surveillance of implantable subdermal contraceptive (principal); Z32.02 Encounter for pregnancy test, result negative
CPT/HCPCS: 11982

== ENCOUNTER → 2024-04-06 10:06 | Outpatient (BNVA) | payer OTHER, SELFPAY | PROVIDERS: PCP Internal Medicine; Visit Provider Advanced Practice Midwife | DX: Z30.46 Encounter for surveillance of implantable subdermal contraceptive (principal); Z71.89 Other specified counseling | CPT/HCPCS: 11982; 81025 ==

== ENCOUNTER 2024-07-16 10:00 | Outpatient (AMB) | payer OTHER, SELFPAY ==
[2024-07-16 10:15] VITALS: BP 130/84; PULSE 85; O2SAT 97; BMI 35.6
--- NOTE | 2024-07-16 10:15 | A.OFFPC_ITS ---
Vital Signs 07/16/24 10:15 Height 5 ft 3 in Weight 201 lb 4 oz BMI 35.6 BP 130/84 Blood Pressure Location Lt brachial Position Sitting Pulse 85 Pulse Source Pulse Oximeter Pulse Oximetry (%) 97 Oxygen Delivery Method Room Air Intake Visit Reasons: Annual Exam Director Of Instructional Technology Required: No Accompanied by: Self / Same As Patient Allergies cephalexin [Keflex] Allergy (Unknown, Verified 07/16/24 10:33) hives Medication List - Last Reconciled 07/16/24 by River Kendrick MD No Known Home Meds Tobacco use date assessed: 07/16/24 Dental Screening Dental Screen Date: 07/16/24 Did you have a dental visit in the last 12 months?: No Did you have a dental problem in the last 6 months where you did not have access to dental care?: No Was dental information given to patient?: No HPI Annual Exam HPI Details Patient comes in today for her annual physical examination States that she feels okay except for increased anxiety States that she has been experiencing recurrent bouts of anxiety for a couple of years now and feels that this has been slowly getting worse lately She would initially get these anxiety attacks while someone else was driving but they now occur even when she herself is driving, especially on the highway, and she has to tail puller at times due to feelings of panic She describes her hand gripping the steering wheel with white-knuckled tension during these bouts of increased anxiety States that she thinks the precipitating event for her anxiety was the arrest of the father of her hliir-mglj-ein child a couple of years ago on charges of child pornography She reports frequently contemplating worst-case scenarios concerning her child and that her symptoms are exacerbated when her child is away from home Her anxiety tends to decrease when she is away at work as work serves as a welcome distraction for her She denies feeling depressed States that she has tried getting in to see a counselor or therapist for a while but was unsuccessful - would like to see or talk to someone MIKA as she feels that her anxiety is starting to affect her negatively She denies any headaches or dizziness Denies any chest pains, no SOB No nausea/vomiting, no abdominal pain No change in bowel habits noted She denies any acute urinary symptoms States that her right knee still bothers her at times but it is mostly manageable She is currently up-to-date with her yearly gynecology exam and pap smear as well as her annual mammography [facility] Medical History (Updated 07/16/24 @ 12:27 by River Kendrick MD) Anxiety Vitamin D deficiency Primary osteoarthritis of right knee Obesity (BMI 30-39.9) Surgical History Hx of appendectomy Family History Mother HTN (hypertension) Ovarian cancer Social History Housing: House Alcohol intake: never Patient Tobacco Use Status: Former Tobacco user Years Smoked: pt states quit 3 yrs ago e-Cigarette/Vaping Use: Never Used Substance Use Type: Heroin service: No Current occupational status: employed 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 1. Little interest or pleasure in doing things: not at all 2. Feeling down, depressed, or hopeless: not at all 3. Trouble falling or staying asleep, or sleeping too much: not at all 4. Feeling tired or having little energy: not at all 5. Poor appetite or overeating: not at all 6. Feeling bad about yourself - or that you are a failure or have let yourself or your family down: not at all 7. Trouble concentrating on things, such as reading the newspaper or watching television: not at all 8. Moving or speaking so slowly that other people could have noticed. Or the opposite - being so fidgety or restless that you have been moving around a lot more than usual: not at all 9. Thoughts that you would be better off or of hurting yourself in some way: not at all Total score: 0 Depression Screening Interpretation: Negative Depression Screening Done: Yes 83970 - PHQ-9 Billing: Yes Source: Developed by Drs. Raul Chavez, Karol Yañez, Vincent Williamson and colleagues, with an educational adrianne from [employer]. Thrive Questionnaire Date Thrive assessed: 07/16/24 I am a: Patient What is your living situation today?: I have a steady place to live Within the past 12 months, did the food you bought not last and you didn't have the money to get more?: Never true Within the past 12 months, did you worry whether your food would run out before you got money to buy more?: Never true Do you have trouble paying for medicines?: No Do you have trouble getting transportation to medical appointments?: No Do you have trouble paying your heating and electricity bill?: No Do you have trouble taking care of your child, family member or friend?: No Do you have trouble with day-to-day activities such as bathing, preparing meals, shopping, managing finances, etc.?: No Are you currently unemployed and looking for a job?: No Are you interested in more education?: No Please select the resources that you would like help with: None Currently or been in a relationship where the following occur: No concerns reported THRIVE Score: 0 AUDIT C Alcohol Use Questionnaire (AUDIT-C) 1. How often do you have a drink containing alcohol?: Monthly or less 2. How many drinks containing alcohol do you have on a typical day when you are drinking?: 1 or 2 3. How often do you have six or more drinks on one occasion?: Never Total Score: 1 Score Reviewed/Action Taken: Yes JAROD-7 AMB Questionnaire JAROD-7 Date JAROD - 7 assessed: 07/16/24 Feeling nervous, anxious, or on edge: 1 = Several days Not being able to stop or control worryin = Several days Worrying too much about different things: 1 = Several days Trouble relaxin = Several days Being so restless that it is hard to sit still: 0 = Not at all Becoming easily annoyed or irritable: 0 = Not at all Feeling afraid as if something awful might happen: 1 = Several days Total JAROD-7 score (0-4 normal; 5-9 mild; 10-14 moderate; 15-21 severe): 5 Source: Developed by Drs. Raul Chavez, Karol Yañez, Vincent Williamson and colleagues, with an educational adrianne from [employer]. Review of Systems Const Denies chills, Denies difficulty sleeping, Denies fatigue, Denies fever(s), Denies headache(s) and Denies malaise Eyes Denies blurry vision, Denies change in vision, Denies irritation and Denies itchy eyes ENT Denies dysphagia, Denies dizziness, Denies otalgia, Denies headache(s), Denies nasal congestion, Denies neck pain, Denies odynophagia, Denies sinus pain and Denies sore throat Card Denies chest pain, Denies rapid heart rate, Denies irregular heart rhythm, Denies palpitations and Denies dyspnea Resp Denies chest congestion, Denies cough, Denies dyspnea and Denies wheezing GI Denies abdominal pain, Denies bloating, Denies constipation, Denies dysphagia, Denies heartburn, Denies diarrhea, Denies nausea, Denies odynophagia and Denies vomiting Denies hematuria, Denies urinary frequency, Denies dysuria, Denies urinary incontinence and Denies urinary urgency Musc Denies back pain, Denies arthralgias, Denies joint swelling, Denies muscle weakness and Denies neck pain Skin/Breast Denies breast pain, Denies breast mass, Denies change in pigmentation, Denies lesions, Denies rash and Denies unusual bruising Neuro Denies dizziness, Denies headache(s) and Denies paresthesias Psych Reports as per HPI, Reports anxiety, Denies depression and Reports panic attacks Endo Denies fatigue and Denies palpitations Elan/Lymph Denies easy bruising Aller/Immun Denies itchy eyes and Denies wheezing Physical exam (Primary Care) Vital Signs: Last Vital Signs Pulse 85 07/16/24 10:15 BP 130/84 07/16/24 10:15 Pulse Ox 97 07/16/24 10:15 Oxygen Delivery Method Room Air 07/16/24 10:15 BMI result Body Mass Index 35.6 Tobacco/Smoking Status: Tobacco use Status Tobacco use date assessed 07/16/24 07/16/24 10:19 Patient Tobacco Use Status Former Tobacco user 07/16/24 10:19 e-Cigarette/Vaping Use Never Used 07/16/24 10:19 PHQ-9: PHQ-9 Score PHQ-9: Total score 0 07/16/24 10:19 Depression Screening Interpretation: Negative Thrive Assessment: Date of Thrive Assessment Date Thrive assessed 07/16/24 07/16/24 10:19 Currently or been in a relationship where the following occur: No concerns reported Const General: no acute distress, alert and awake Orientation/consciousness: patient oriented x3 HENMT Head: Yes normocephalic and Yes atraumatic Ears: external ears normal, TM's normal bilaterally and EAC's normal General nose exam: No nasal discharge present Face and sinus: Yes normal facial exam and Yes sinuses nontender Teeth and gingiva: dentition normal Throat: Yes posterior oropharynx normal and Yes tonsils normal (no TP congestion) Eyes Eyelids: Yes eyelids normal Conjunctivae: conjunctivae normal Pupils: Equal, round and reactive pupils present EOM: EOMs intact bilaterally Neck Neck: Yes supple and No lymphadenopathy Thyroid: Thyroid normal Resp Auscultation: clear to auscultation bilaterally, no rales and no wheezes Cardio Rate: regular rate Rhythm: regular rhythm Heart sounds: no murmurs GI Palpation (GI): Soft to palpation, nontender and No hepatosplenomegaly present Auscultation: normal bowel sounds General: Yes no CVA tenderness Back/Spine/Pelvis Back: no CVA tenderness Thoracic/Lumbar Spine: thoracic and lumbar spine normal to inspection Skin Lesions: no lesions Rashes: no rashes Neuro General: patient oriented x3, moves all extremities, no focal motor deficits and CN's II-XI intact bilaterally Cranial nerves: Yes Equal, round and reactive pupils present Cognition (Neuro): normal cognition Gait exam (Neuro): Normal gait present Extrem General: Yes no clubbing, cyanosis or edema Coding Level of Care Code Est Pt Prev Care 40-64y(86078) Diagnoses Annual physical exam Z00.00 Primary osteoarthritis of right knee M17.11 Elevated alanine aminotransferase (ALT) level R74.01 Anxiety F41.9 Post traumatic stress disorder (PTSD) F43.10 Obesity (BMI 30-39.9) E66.9 Additional Codes PHQ-9 - 57301 - PHQ-9 Billing: Yes ([id number]) Assessment & Plan Assessment & Plan (1) Annual physical exam: Code(s): Z00.00 - Encounter for general adult medical examination without abnormal findings Category: Medical Plan: Check labs She is currently up-to-date with her yearly gynecology exam and pap smear as well as her annual mammography (2) Primary osteoarthritis of right knee: Code(s): M17.11 - Unilateral primary osteoarthritis, right knee Category: Medical Plan: X-rays of the right knee done back in May 2022 revealed (+) very mild degenerative change of the medial joint space compartment of the right knee Continue OTC Tylenol or Ibuprofen as needed for knee pain Follow up with orthopedics as scheduled or as needed (3) Elevated alanine aminotransferase (ALT) level: Code(s): R74.01 - Elevation of levels of liver transaminase levels Category: Medical Plan: Her ALT was still slightly elevated on her most recent labs done last year; AST was normal Patient states that she does not drink any alcohol and does not really take any Rx containing Tylenol Have discussed with patient that this is likely due to her weight and should improve with weight loss Will recheck her LFTs for follow up and will continue to monitor her LFTs regularly Will check abdominal US only if her LFTs increase significantly (4) Anxiety: Code(s): F41.9 - Anxiety disorder, unspecified Category: Medical Plan: Have advised patient that her recently increasing anxiety symptoms are likely due to PTSD, with the trigger being the father of her 3 yr old child being arrested a couple of years ago for charges of child pornography She prefers not to take any Rx if they are avoidable; states that she has been trying to get in to see a at least a therapist or counselor for a while now but has not been successful Will refer her to our outpatient psychiatry clinic for initial assessment and they should be able to help get her stabilized and then get her in touch with the appropriate agency for continuing management and counseling (5) Post traumatic stress disorder (PTSD): Code(s): F43.10 - Post-traumatic stress disorder, unspecified Category: Medical Plan: See above (6) Obesity (BMI 30-39.9): Code(s): E66.9 - Obesity, unspecified Category: Medical Plan: Reinforced diet/exercise as tolerated/lose weight Plan Follow up in 6 months Orders: Orders Complete Blood Count Auto Diff Today D64.9 - Anemia, unspecified, Z00.00 - Encounter for general adult medical examination without abnormal findings Comprehensive [place]. Panel Fast Today E78.00 - Pure hypercholesterolemia, unspecified, Z00.00 - Encounter for general adult medical examination without abnormal findings Lipid Panel Today E78.00 - Pure hypercholesterolemia, unspecified, Z00.00 - Encounter for general adult medical examination without abnormal findings UA CC w/rflx Micro + Cult Today R30.0 - Dysuria, Z00.00 - Encounter for general adult medical examination without abnormal findings TSH reflex Free T4 Today E78.00 - Pure hypercholesterolemia, unspecified, Z00.00 - Encounter for general adult medical examination without abnormal findings Vitamin D 25-OH Total Today E55.9 - Vitamin D deficiency, unspecified, Z00.00 - Encounter for general adult medical examination without abnormal findings Referrals Psychiatry Outpatient Consultation Service F41.9 - Anxiety disorder, unspecified, F43.10 - Post-traumatic stress disorder, unspecified
--- OUTSIDE RECORDS SUMMARY | 2024-07-16 11:05 | XMS_ITS | Data Portability ---
Author Organization RENATO Vazquez [facility], [address] Address [address] [place] [address] Care Team Providers Care Pie Cutter Name Role Phone LUIS ENRIQUE SALDIVAR Primary Care Provider [phone] Assessment No assessment recorded. Plan of Treatment Reminders Order Date Submit Date Provider Last Modified By Organization Details Last Modified Time Details Appointments None recorded. Lab None recorded. Referral None recorded. Procedures None recorded. Surgeries None recorded. Imaging None recorded. Medication Orders moxifloxaci n 0.5 % eye drops 2022 023 skeal [id number], [address] [place], [address], 15:03:33 ofloxacin 0.3 % ear drops 2022 023 CHARMAINE [id number], [address] [place], [address], 11:51:17 Patient TargetsNo targets recorded. Patient Instructions Encounter Date Encounter Id Patient Instructions Last Modified By Organization Details Last Modified Time 08/21/2022 [id number] swimmer's ear: care instructions [email or web address] Not available 08/21/2022 09:46:39 keeping ears dry : care instructions [email or web address] Not available 08/21/2022 09:46:39 Use the ear drop s as prescribed. See printed instructions. Follow-up with your doctor if no improvement in a few days. Seek Emergency Medical evaluation for any worsening symptoms. [email or web address] Not available 08/21/2022 09:46:38 02/22/2023 [id number] blepharitis: car e instructions [email or web address] Not available 02/22/2023 12:04:44 Reason for Referral None Reported. Problems No Known Problems Procedures Surgical History Date Name Laterality Status Provider Name and Address Organization Details Recorded Time Appendectomy completed JOHN Vazquez [facility] 08/21/2022 08:55:25 Imaging Results None recorded. Procedure Notes None recorded. Medical Equipment None Reported. Allergies Allergen ID Allergen Name Allergen Category Reaction Reaction Severity Criticality Documentation Date Start Date Code Code System Note Provider Name and Address Organization Details Recorded Time 403696 Keflex medicatio n itching Not available Not available 08/21/202289586 7 RxNorm RENATO Marcus - [facility] 3 08:54:30 Medications Name Sig Start Date Stop Date Status Note LastModified by Organization Details LastModified Time moxifloxacin 0.5 % eye drops Instill 1 drop 3 times a day by ophthalmic route for 7 days. 2022 active Not Available Not Available Not Avai lable Nexplanon active Not Available Not Joselin ilable Not Available Vitals Date Recorded Body height Body mass index (BMI) Body weight Pain severity - 0-10 verbal numeric rating [Score] - Reported Respiratory rate Oxygen saturation Oxygen saturation in Arterial blood by Pulse oximetry Heart rate Body temperature Systolic blood pressure Diastolic blood pressure Provider Name and Address Organization Details Last Updated DateTime 3 157.48 cm 38.4 kg/m2 11474.4 g 5 18 /min 98 % 98 % 68 /min 98.1 [degF] 127 mm[Hg] 84 mm[Hg] JOHN Vazquez [facility] 3 08:56:43 Date Recorded Body height Body mass index (BMI) Body weight Respiratory rate Body temperature Oxygen saturation Oxygen saturation in Arterial blood by Pulse oximetry Heart rate Systolic blood pressure Diastolic blood pressure Provider Name and Address Organization Details Last Updated DateTime 3 157.48 cm 34.8 kg/m2 31824.5 5 g 16 /min 97.3 [degF] 98 % 98 % 79 /min 138 mm[Hg] 84 mm[Hg] LUCINDA GROSS - [facility] 3 11:53:58 Social History Question Answer Notes LastModified by Organizat ion Details LastModified Time Tobacco Smoking Status Former Smoker RENATO Marcus - [facility] 08/21/2022 08:55:51 What Is Your Level Of Alcohol Consumption? None [email or web address] Information not available 08/21/2022 Which Illicit Or Recreational Drugs Have You Used? Marijuana [email or web address] Information not available 08/21/2022 Do You Or Have You Ever Used E-cigarettes Or Vape? Current User Of Electronic Cigarettes Occasional [email or web address] Information not available 08/21/2022 When Did You Quit Smoking? 1-5yearssince lastcigarette [email or web address] Information not available 08/21/2022 Do You Use Any Illicit Or Recreational Drugs? Yes [email or web address] Information not available 08/21/2022 Have You Recently Traveled Abroad? No Information not available 08/21/2022 Do You Or Have You Ever Used Any Other Forms Of Tobacco Or Nicotine? Yes [email or web address] Information not available 08/21/2022 Sex: Unknown Functional Status None recorded. Mental Status None recorded. Family History Relationship Description Onset Age of this Age Resolved Age Notes LastModified by Organization Details LastModified Time Father No current problems or disability [email or web address] Not available 08/21 08:55:27 Mother No current problems or disability [email or web address] Not available 08/21 08:55:27 Medical History No medical history recorded. Gynecological History Statement/Question Response Date of LMP 01/24/2023 Is there any chance of ? No Obstetrics History GPAL:G 0 P 0 0 0 0 Past Encounters Encounter ID Performer Location Encounter Start Date Encounter Closed Date Diagnosis/Indication Diagnosis SNOMED-CT Code Diagnosis ICD10 Code Diagnosis Note [id number] [address] [place] [address] 05/04/2020 11:57:40 05/04/2020 15:30:24 [id number] [address] [address] 10/29/2020 18:42:16 10/29/2020 19:16:47 [id number] [address] [address] 05/10/2019 09:23:37 05/10/2019 10:21:10 [id number] [address] [place] [address] 04/27/2020 08:33:27 04/27/2020 11:24:01 [id number] [address] [place] [address] 07/28/2020 14:36:25 07/28/2020 16:06:10 [id number] [address] [place] [address] 07/05/2018 17:29:45 07/05/2018 18:19:[id number] [address] 10/13/2019 11:07:46 10/13/2019 11:48:34 [id number] [address] [place] [address] 08/16/2018 16:14:03 08/16/2018 17:57:55 [id number] [address] [place] [address] 05/01/2020 08:52:27 05/01/2020 09:31:39 [id number] [address] [place] [address] 09/04/2020 08:41:58 09/04/2020 11:04:52 [id number] [address] [place] [address] 01/24/2019 16:36:03 01/24/2019 17:02:48 [id number] [address] [place] [address] 07/15/2020 11:45:40 07/15/2020 13:05:22 [id number] [address] [place] [address] 07/30/2018 14:04:38 07/30/2018 15:11:53 [id number] Tiera Hoover MD [address] [facility] [place] [address] 08/21/2022 08:11:47 08/21/2022 09:48:16 Otitis externa of left ear [id number] 476707 H60.92 [id number] Brenda Kiran [place] [address] [facility] [place] [id number] 02/22/2023 11:33:58 02/22/2023 12:05:33 Blepharitis of left upper eyelid [id number] 56484 H01.004 Warm compresses to the left eye 3 times per dayTake an antihistam ine to help with swelling and itching Health Concerns Section Related Observation LastModified by Organization Detai ls LastModified Time None Recorded Concern Status LastModified by Organization Details LastModified Time None Recorded Advance Directives Directive None Recorded Payers Encounter Date Sequence Insurance Name Policy Number Policy Luis Covered Member ID Luis Member ID Guarantor Name 07/28/[address] [facility] (MEDICAID HMO[facility] [id number] Jesica Mertes 09/04/2020 1 [facility] PLAN (MEDICAID HMO) [facility] Jes[facility] L Mert[facility] [id number] Jesica Mertes 10/29/2020 1 [facility] PLAN (MEDICAID HMO) [place] Jesica L Mertes [id number] Jesica Mertes 08/21/2022 1 [facility] PLAN (MEDICAID HMO) [place] Jesica L Mertes [id number] Jesica Mertes 02/22/2023 1 [facility] PLAN (MEDICAID HMO) [facility] Jes[facility] M[facility] [id number] Jesica Mertes Notes Date Note Type Note Provider Name and Address Organization Details Recorded Time 3 text/html Ear problemReported bypatient.source of patient informationInformation obtained from patient; Patient arrived at Urgent Care ambulatory Location:left Quality:pain;clogged Severity:moderate Duration:1 weeks Context:no sick contacts; no recent air travel;swimming/water in ear Modifying Factors:does not hurt to chew;hurts to lie on, or pull on ear Associated Symptoms:popping noise in the ears;tender to touch; no feverNotes:42 year old female presenting for evaluation of left ear pain and pressure getting worse for one week. Symptoms began after being in a pool with her child for swim classes. No fever, chills, headache, rash, stiff neck, swollen glands, ear drainage, diminished hearing, nasal congestion, sore throat or cough. No hx of ear trauma. Tiera Hoover MD [address] [place], [address], [employer] - [facility] 08/21/2022 09:51:59 3 text/html Eye problemsReported bypatient.source of patient informationInformation obtained from patient; Patient arrived at Urgent Care ambulatory Location:left Eye Symptoms:no sensitivity to light;redness;watery Onset/Timindays Modifying Factors:nothing gives relief Brenda Kiran MD [address] [place], [address], [employer] [facility] 02/23/2023 15:08:36 OBGyn Episode No OBEpisode recorded.
== END 2024-07-16 10:48 | disposition home or self-care (01) ==
PROVIDERS: PCP Internal Medicine; Visit Provider Internal Medicine
DX: Z00.00 Encounter for general adult medical examination without abnormal findings (principal); M17.11 Unilateral primary osteoarthritis, right knee; Z68.35 Body mass index [BMI] 35.0-35.9, adult; E66.9 Obesity, unspecified; R74.01 Elevation of levels of liver transaminase levels; F41.9 Anxiety disorder, unspecified; F43.10 Post-traumatic stress disorder, unspecified

== ENCOUNTER → 2024-07-16 10:00 | Outpatient (BNVA) | payer OTHER, SELFPAY | PROVIDERS: PCP Internal Medicine; Visit Provider Internal Medicine | DX: Z00.00 Encounter for general adult medical examination without abnormal findings (principal); M17.11 Unilateral primary osteoarthritis, right knee; R74.01 Elevation of levels of liver transaminase levels; F41.9 Anxiety disorder, unspecified; F43.10 Post-traumatic stress disorder, unspecified; E66.9 Obesity, unspecified; Z68.35 Body mass index [BMI] 35.0-35.9, adult; Z71.3 Dietary counseling and surveillance | CPT/HCPCS: 96127; 99396 ==

== ENCOUNTER 2024-07-23 08:14 | Outpatient (REF) | payer OTHER, SELFPAY ==
--- OUTSIDE RECORDS SUMMARY | 2024-07-23 08:25 | XMS_ITS | Data Portability ---
Author Organization RENATO Vazquez [facility], [address] Address [address] [place] [address] Care Team Providers Care Supervisor Waterproofing Name Role Phone LUIS ENRIQUE SALDIVAR Primary Care Provider Assessment No assessment recorded. Plan of Treatment Reminders Order Date Submit Date Provider Last Modified By Organization Details Last Modified Time Details Appointments None recorded. Lab None recorded. Referral None recorded. Procedures None recorded. Surgeries None recorded. Imaging None recorded. Medication Orders moxifloxaci n 0.5 % eye drops 2022 023 skeal [id number], [address] [place], [address], 15:03:33 ofloxacin 0.3 % ear drops 2022 023 CHARMAINE [id number], [address] [place], [address], 11:51:17 Patient TargetsNo targets recorded. Patient Instructions Encounter Date Encounter Id Patient Instructions Last Modified By Organization Details Last Modified Time 08/21/2022 [id number] swimmer's ear: care instructions [email or web address] Not available 08/21/2022 09:46:39 keeping ears dry : care instructions [email or web address] Not available 08/21/2022 09:46:39 Use the ear drop s as prescribed. See printed instructions. Follow-up with your doctor if no improvement in a few days. Seek Emergency Medical evaluation for any worsening symptoms. [email or web address] Not available 08/21/2022 09:46:38 02/22/2023 [id number] blepharitis: car e instructions [email or web address] Not available [...] Name and Address Organization Details Recorded Time 264704 Keflex medicatio n itching Not available Not available 08/21/202290388 7 RxNorm RENATO Marcus - [facility] [...] Updated DateTime 3 157.48 cm 38.4 kg/m2 60773.4 g 5 18 /min 98 % 98 [...] Updated DateTime 3 157.48 cm 34.8 kg/m2 67667.5 5 g 16 /min 97.3 [degF] 98 % 98 % 79 /min 138 mm[Hg] 84 mm[Hg] LUCINDA GROSS - [facility] 3 11:53:58 Social History Question Answer Notes LastModified by Organizat ion Details LastModified Time Tobacco Smoking Status Former Smoker RENATO Marcus - [facility] 08/21/2022 08:55:51 What Is Your Level Of Alcohol Consumption? None [email or web address] Information not available 08/21/2022 Which Illicit Or Recreational Drugs Have You Used? Marijuana [email or web address] Information not available 08/21/2022 Do You Or Have You Ever Used E-cigarettes Or Vape? Current User Of Electronic Cigarettes Occasional Information not available 08/21/2022 When Did You Quit Smoking? 1-5yearssince lastcigarette Information not available 08/21/2022 Do You Use Any Illicit Or Recreational Drugs? Yes [email or web address] Information not available 08/21/2022 Have You Recently Traveled Abroad? No [email or web address] Information not available 08/21/2022 Do You Or Have You Ever Used Any Other Forms Of Tobacco Or Nicotine? Yes [email or web address] Information not available 08/21/2022 Sex: Unknown Functional Status None recorded. Mental Status None recorded. Family History Relationship Description Onset Age of this Age Resolved Age Notes LastModified by Organization Details LastModified Time Father No current problems or disability [email or web address] Not available 08/21 08:55:27 Mother No current problems or disability [email or web address] Not available 08/21 08:55:27 Medical History No medical history recorded. Gynecological History Statement/Question Response Date of LMP 01/24/2023 Is there any chance of ? No Obstetrics History GPAL:G 0 P 0 0 0 0 Past Encounters Encounter ID Performer Location Encounter Start Date Encounter Closed Date Diagnosis/Indication Diagnosis SNOMED-CT Code Diagnosis ICD10 Code Diagnosis Note [id number] [address] [place] [address] 05/04/2020 11:57:40 05/04/2020 15:30:24 [id number] [address] [address] 10/29/2020 18:42:16 10/29/2020 19:16:47 [id number] [address] [address] 05/10/2019 09:23:37 05/10/2019 10:21:10 [id number] [address] [place] [address] 04/27/2020 08:33:27 04/27/2020 11:24:01 [id number] [address] [place] [address] 07/28/2020 14:36:25 07/28/2020 16:06:10 [id number] [address] [place] [address] 07/05/2018 17:29:45 07/05/2018 18:19:[address] [id number] [address] 10/13/2019 11:07:46 10/13/2019 11:48:34 [id number] [address] [place] [address] 08/16/2018 16:14:03 08/16/2018 17:57:55 [id number] [address] [place] [address] 05/01/2020 08:52:27 05/01/2020 09:31:39 [id number] [address] [place] [address] 09/04/2020 08:41:58 09/04/2020 11:04:52 [id number] [address] [place] [address] 01/24/2019 16:36:03 01/24/2019 17:02:48 [id number] [address] [place] [address] 07/15/2020 11:45:40 07/15/2020 13:05:22 [id number] [address] [place] [address] 07/30/2018 14:04:38 07/30/2018 15:11:53 [id number] Tiera Hoover MD [address] [place] [address] 08/21/2022 08:11:47 08/21/2022 09:48:16 Otitis externa of left ear [id number] H60.92 [id number] Brenda Kiran [place] [address] [facility] [place] [address] 02/22/2023 11:33:58 02/22/2023 12:05:33 Blepharitis of left upper eyelid 0485114495 49818 H01.004 Warm compresses to the left eye [...] Luis Member ID Guarantor Name 07/28/2020 1 [facility] PLAN (MEDICAID HMO) [facility] Jes[facility] L Mert[facility] [id number] Jesica Mertes 09/04/2020 1 [facility] (MEDICAID HMO) [facility] Jesica L Mertes [id number] Jesica Mertes 10/29/2020 1 [facility] (MEDICAID HMO) [place] Jesica L Mertes [id number] Jesica Mertes 08/21/2022 1 [facility] PL[facility] (MEDICAID HMO) [place] Jesica L Mertes [id number] Jesica Mertes 02/22/2023 1 [facility] (MEDICAID HMO) [facility] Jesica L Mertes [id number] Jesica Mertes Notes Date Note Type Note [...] Tiera Hoover MD [address] [place], [address], [facility] 08/21/2022 09:51:59 3 text/html Eye problemsReported bypatient.source of patient informationInformation obtained from patient; Patient arrived at Urgent Care ambulatory Location:left Eye Symptoms:no sensitivity to light;redness;watery Onset/Timindays Modifying Factors:nothing gives relief Brenda Kiran MD [address] [place], [address], [facility] 02/23/2023 15:08:36 OBGyn Episode No OBEpisode recorded.
[2024-07-23 10:22] LABS: MANUAL DIFF FLAG NO
[2024-07-23 10:34] LABS: Basophils Absolute Auto 0.1 X10*3/uL (0.0-0.2); Basophils Percent Auto 0.7 % (0-2); Eosinophils Absolute Auto 0.1 X10*3/uL (0.0-0.4); Eosinophils Percent Auto 0.9 % (0-4); Hematocrit 41.1 % (37.0-47.0); Hemoglobin 13.4 g/dl (12.0-16.0); Imm Gran Abs Auto 0.04 X10*3/uL (0.00-0.03); Imm Gran Pct Auto 0.5 % (0.0-0.4); Lymphocytes Absolute Auto 1.6 X10*3/uL (1.2-4.9); Lymphocytes Percent Auto 21.8 % (20-40); Mean Corpuscular HGB Conc 32.6 g/dl (31.0-35.0); Mean Corpuscular Hemoglobin 28.7 pg (27.0-33.0); Monocytes Absolute Auto 0.5 X10*3/uL (0.1-1.2); Monocytes Percent Auto 6.2 % (2-11); Neutrophils Absolute Auto 5.2 x10*3/uL (2.0-8.3); Neutrophils Percent Auto 69.9 % (45-73); Platelet Count 308 X10*3/uL (160-400); Red Blood Count 4.67 X10*6/uL (4.20-5.50); Red Cell Distribution Width 13.2 % (11.0-16.0); White Blood Count 7.5 X10*3/uL (4.8-10.8)
[2024-07-23 11:03] LABS: Alanine Aminotransferase 47 U/L (0-31); Albumin Level 4.3 g/dL (3.5-5.0); Alkaline Phosphatase 68 U/L (39-117); Anion Gap 14 (12-20); Aspartate Amino Transferase 33 U/L (5-31); Bilirubin Total 1.1 mg/dL (0.0-1.0); Blood Urea Nitrogen 13 mg/dL (9-16); Calcium 9.4 mg/dL (8.4-10.2); Carbon Dioxide 23 mmol/L (22-29); Chloride 109 mmol/L (96-108); Cholesterol 185 mg/dL (<200); Estimated Glomerular Filt Rate > 60; Glucose Fasting 92 mg/dL (60-99); HDL Cholesterol 72 mg/dL (>40); LDL Cholesterol Calculated 96 mg/dL (<100); Sodium 142 mmol/L (135-145); Total Protein 7.7 g/dL (6.5-8.0); Triglycerides 85 mg/dL (<150)
[2024-07-23 11:06] LABS: Appearance Urine Clear; Color Urine Yellow; Glucose Urine UA Negative (Negative); Leukocyte Esterase Urine Trace (Negative); Nitrite Urine Negative (Negative); Specific Gravity - Urine 1.015 (1.005-1.025); UMIC TRIGGER UACC YES; Urine Blood Negative (Negative); Urine Ketones Negative (Negative); Urine Protein Negative (Neg-Trace)
[2024-07-23 11:10] LABS: Bacteria Urine 1+ (None Seen); Hyaline Casts Urine 0-2 /LPF (0-2); RBC Urine 0-2 /HPF (0-2); Squamous Epithelial Cell Urine >20 /HPF (0-2); UACC Culture Trigger YES
[2024-07-23 11:22] LABS: TSH reflex Free T4 1.39 uIU/mL (0.32-4.0); Vitamin D 25-OH Total 55.1 ng/mL (>30)
== END 2024-07-23 08:15 | disposition home or self-care (01) ==
LOC: HO.HMGCLDS 08:14
PROVIDERS: PCP Internal Medicine; Visit Provider Internal Medicine
DX: Z00.00 Encounter for general adult medical examination without abnormal findings (principal); E78.00 Pure hypercholesterolemia, unspecified; D64.9 Anemia, unspecified; E55.9 Vitamin D deficiency, unspecified
CPT/HCPCS: 36415; 80053; 80061; 81001; 81003; 82306; 84443; 85025; 87086

== ENCOUNTER 2024-08-14 08:50 | Outpatient (REF) | payer OTHER, SELFPAY ==
--- NOTE | ~2024-08-14 | MM_ITS ---
EXAMINATION: MM DIAGNOSTIC DIGITAL BREAST TOMOSYNTHESIS, BILATERAL CLINICAL INFORMATION: Follow-up grouped calcifications in the upper outer right breast. COMPARISON: Mammography: Comparison is made with relevant prior exams. TECHNIQUE: Digital breast mammography with tomosynthesis is performed in both the craniocaudal and mediolateral oblique views along with computer-aided detection (CAD). FINDINGS: The breasts are heterogeneously dense, which may obscure small masses (ACR BI-RADS breast composition Category c). Grouped calcifications in the upper outer right breast are not significantly changed from prior magnification views dating back for 2 years and therefore benign. There are no significant masses, abnormal calcifications, or other abnormalities. Results are provided to the patient at time of visit by the technologist. MM/MM tomosynthesis diagnostic BI IMPRESSION: No mammographic evidence of malignancy. ASSESSMENT: BI-RADS BI-RADS 2 - Benign Findings RECOMMENDATION: 1 year F/U This patient's information was entered into a reminder system with a target due date for their next mammogram. Electronically signed by: Ana Lilia Hudson DO 08/14/2024 09:41 AM EDT
--- OUTSIDE RECORDS SUMMARY | 2024-08-14 09:33 | XMS_ITS | Data Portability ---
Author Organization RENATO Vazquez [facility], [address] Address [address] [place] [address] Care Team Providers Care Bearing Press Machine Operator Name Role Phone LUIS ENRIQUE SALDIVAR Primary [...] [id number] [address] [place], [address], 15:03:33 ofloxacin 0.3 % ear drops 2022 023 CHARMAINE [id number], [address] [place], [address], 11:51:17 Patient TargetsNo targets recorded. Patient Instructions Encounter Date Encounter Id Patient Instructions Last Modified By Organization Details Last Modified Time 08/21/2022 [id number] swimmer's ear: care instructions [email or web address] Not available 08/21/2022 09:46:39 keeping ears dry : care instructions [email or web address] Not available 08/21/2022 09:46:39 Use the ear drop s as prescribed. See printed instructions. Follow-up with your doctor if no improvement in a few days. Seek Emergency Medical evaluation for any worsening symptoms. [email or web address] Not available 08/21/2022 09:46:38 02/22/2023 [id number] blepharitis: car e instructions [email or web address] Not available [...] Name and Address Organization Details Recorded Time 735137 Keflex medicatio n itching Not available Not available 08/21/202219106 7 RxNorm RENATO Marcus - [facility] [...] Updated DateTime 3 157.48 cm 38.4 kg/m2 19725.4 g 5 18 /min 98 % 98 [...] Updated DateTime 3 157.48 cm 34.8 kg/m2 62033.5 5 g 16 /min 97.3 [degF] 98 % 98 % 79 /min 138 mm[Hg] 84 mm[Hg] LUCINDA GROSS - [facility] 3 11:53:58 Social History Question Answer Notes LastModified by Organizat ion Details LastModified Time Tobacco Smoking Status Former Smoker RENATO Marcus - [facility] 08/21/2022 08:55:51 What Is Your Level Of Alcohol Consumption? None Information not available 08/21/2022 Which Illicit Or Recreational Drugs Have You Used? Marijuana Information not available 08/21/2022 Do You Or Have You Ever Used E-cigarettes Or Vape? Current User Of Electronic Cigarettes Occasional [email or web address] Information not available 08/21/2022 When Did You Quit Smoking? 1-5yearssince lastcigarette [email or web address] Information not available 08/21/2022 Do You Use Any Illicit Or Recreational Drugs? Yes [email or web address] Information not available 08/21/2022 Have You Recently Traveled Abroad? No [email or web address] Information not available 08/21/2022 Do You Or Have You Ever Used Any Other Forms Of Tobacco Or Nicotine? Yes [email or web address] Information not available 08/21/2022 Sex: Unknown Functional Status None recorded. Mental Status None recorded. Family History Relationship Description Onset Age of this Age Resolved Age Notes LastModified by Organization Details LastModified Time Father No current problems or disability [email or web address] Not available 08/21 08:55:27 Mother No current problems or disability [email or web address] Not available 08/21 08:55:27 Medical History No medical history recorded. Gynecological History Statement/Question Response Date of LMP 01/24/2023 Is there any chance of ? No Obstetrics History GPAL:G 0 P 0 0 0 0 Past Encounters Encounter ID Performer Location Encounter Start Date Encounter Closed Date Diagnosis/Indication Diagnosis SNOMED-CT Code Diagnosis ICD10 Code Diagnosis Note [id number] [address] [place] [address] 05/04/2020 11:57:40 05/04/2020 15:30:24 [id number] [address] [address] 10/29/2020 18:42:16 10/29/2020 19:16:47 [id number] [address] [address] 05/10/2019 09:23:37 05/10/2019 10:21:10 [id number] [address] [place] [address] 04/27/2020 08:33:27 04/27/2020 11:24:01 [id number] [address] [facility] [place] [address] 07/28/2020 14:36:25 07/28/2020 16:06:10 [id number] [address] [facility] [place] [address] 07/05/2018 17:29:45 07/05/2018 18:19:[id number] [address] [address] 10/13/2019 11:07:46 10/13/2019 11:48:34 [id number] [address] [facility] [place] [address] 08/16/2018 16:14:03 08/16/2018 17:57:55 [id number] [address] [facility] [place] [address] 05/01/2020 08:52:27 05/01/2020 09:31:39 [id number] [address] [facility] [place] [address] 09/04/2020 08:41:58 09/04/2020 11:04:52 [id number] [address] [facility] [place] [address] 01/24/2019 16:36:03 01/24/2019 17:02:48 [id number] [address] [facility] [place] [address] 07/15/2020 11:45:40 07/15/2020 13:05:22 [id number] [address] [facility] [place] [address] 07/30/2018 14:04:38 07/30/2018 15:11:53 [id number] Tiera Hoover MD [address] [facility] [place] [address] 08/21/2022 08:11:47 08/21/2022 09:48:16 Otitis externa of left ear 8807065810 [id number] H60.92 [id number] Brenda Kiran [place] [address] [place] [address] 02/22/2023 11:33:58 02/22/2023 12:05:33 Blepharitis of left upper eyelid [id number] 92516 H01.004 Warm compresses to the left eye [...] Luis Member ID Guarantor Name 07/28/2020 1 [facility] PLAN (MEDICAID HMO) [facility] [id number] Jesica Mertes 09/04/2020 1 [facility] PLAN (MEDICAID HMO) [facility] M[facility] [id number] Jesica Mertes 10/29/2020 1 [facility] PLAN (MEDICAID HMO) [place] Jesica L Mertes [id number] Jesica Mertes 08/21/2022 1 [facility] PLAN (MEDICAID HMO) [place] Jesica L Mertes [id number] Jesica Mertes 02/22/2023 1 [facility] PLAN (MEDICAID HMO) [facility] M[facility] [id number] Jesica Mertes Notes Date Note Type Note [...] Tiera Hoover MD [address] [place], [address], [employer] - [facility] 08/21/2022 09:51:59 3 text/html Eye problemsReported bypatient.source of patient informationInformation obtained from patient; Patient arrived at Urgent Care ambulatory Location:left Eye Symptoms:no sensitivity to light;redness;watery Onset/Timindays Modifying Factors:nothing gives relief Brenda Kiran MD [address] [place], [address], [employer] [facility] 02/23/2023 15:08:36 OBGyn Episode No OBEpisode recorded.
== END 2024-08-14 08:51 | disposition home or self-care (01) ==
LOC: HO.MAMMO 08:50
PROVIDERS: PCP Internal Medicine; Visit Provider Internal Medicine
DX: R92.1 Mammographic calcification found on diagnostic imaging of breast (principal)
CPT/HCPCS: 77062; 77066

== ENCOUNTER → 2024-08-14 09:00 | Outpatient (BNV) | payer OTHER, SELFPAY | PROVIDERS: PCP Internal Medicine; Visit Provider Internal Medicine | DX: R92.1 Mammographic calcification found on diagnostic imaging of breast (principal) | CPT/HCPCS: 77062; 77066 ==

== ENCOUNTER 2025-01-22 09:39 | Outpatient (AMB) | payer OTHER, SELFPAY ==
--- NOTE | 2025-01-22 09:42 | A.OFFPC_ITS ---
Vital Signs 01/22/25 09:43 Height 5 ft 3 in Weight 208 lb BMI 36.8 BP 130/82 Blood Pressure Location Lt brachial Position Sitting Pulse 81 Pulse Source Pulse Oximeter Pulse Oximetry (%) 97 Oxygen Delivery Method Room Air Intake Visit Reasons: 6 Months f/u Tip Printer Required: No Accompanied by: Self / Same As Patient Allergies cephalexin (Keflex) Allergy (Unknown, Verified 01/22/25 10:13) hives Medication List - Last Reconciled 01/22/25 by River Kendrick MD No Known Home Meds Tobacco use date assessed: 01/22/25 Dental Screening Dental Screen Date: 01/22/25 Did you have a dental visit in the last 12 months?: No Did you have a dental problem in the last 6 months where you did not have access to dental care?: No Was dental information given to patient?: Patient has dentist HPI 6 Months f/u HPI Details Patient comes in today for her follow up visit States that she feels okay She still has recurrent issues with anxiety but states that they are not as bad as they used to be She is currently not taking any Rx for her anxiety and does not feel that she needs to be on any Rx but reports that there were a couple of times when her mother had to give her some (of her mother's) Klonopin Rx to help calm her down Patient has been referred to psychiatry at her last visit and states that someone from [facility] reached out to her in July 2024 and advised her that they will place her on a waiting list to see psychiatry and will reach out to her again when she can be scheduled but states that it has been about 6 months now and she has not heard back from them again She denies any headaches or dizziness Denies any chest pains, no SOB No nausea/vomiting, no abdominal pain No change in bowel habits noted PFSH Medical History Anxiety Vitamin D deficiency Primary osteoarthritis of right knee Obesity (BMI 30-39.9) Surgical History Hx of appendectomy Family History Mother HTN (hypertension) Ovarian cancer Social History Housing: House Alcohol intake: never Patient Tobacco Use Status: Former Tobacco user Years Smoked: pt states quit 3 yrs ago e-Cigarette/Vaping Use: Never Used Substance Use Type: Heroin service: No Current occupational status: employed 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 1. Little interest or pleasure in doing things: not at all 2. Feeling down, depressed, or hopeless: not at all 3. Trouble falling or staying asleep, or sleeping too much: not at all 4. Feeling tired or having little energy: not at all 5. Poor appetite or overeating: not at all 6. Feeling bad about yourself - or that you are a failure or have let yourself or your family down: not at all 7. Trouble concentrating on things, such as reading the newspaper or watching television: not at all 8. Moving or speaking so slowly that other people could have noticed. Or the opposite - being so fidgety or restless that you have been moving around a lot more than usual: not at all 9. Thoughts that you would be better off or of hurting yourself in some way: not at all Total score: 0 Depression Screening Interpretation: Negative Depression Screening Done: Yes 05687 - PHQ-9 Billing: Yes Source: Developed by Drs. Raul Chavez, Karol Yañez, Vincent Williamson and colleagues, with an educational adrianne from [email or web address]. Thrive Questionnaire Date Thrive assessed: 07/12/24 I am a: Patient What is your living situation today?: I have a steady place to live Within the past 12 months, did the food you bought not last and you didn't have the money to get more?: Never true Within the past 12 months, did you worry whether your food would run out before you got money to buy more?: Never true Do you have trouble paying for medicines?: No Do you have trouble getting transportation to medical appointments?: No Do you have trouble paying your heating and electricity bill?: No Do you have trouble taking care of your child, family member or friend?: No Do you have trouble with day-to-day activities such as bathing, preparing meals, shopping, managing finances, etc.?: No Are you currently unemployed and looking for a job?: No Are you interested in more education?: No Please select the resources that you would like help with: None Currently or been in a relationship where the following occur: No concerns reported THRIVE Score: 0 AUDIT C Alcohol Use Questionnaire (AUDIT-C) 1. How often do you have a drink containing alcohol?: Monthly or less 2. How many drinks containing alcohol do you have on a typical day when you are drinking?: 1 or 2 3. How often do you have six or more drinks on one occasion?: Never Total Score: 1 Score Reviewed/Action Taken: Yes JAROD-7 AMB Questionnaire JAROD-7 Date JAROD - 7 assessed: 07/16/24 Feeling nervous, anxious, or on edge: 1 = Several days Not being able to stop or control worryin = Several days Worrying too much about different things: 1 = Several days Trouble relaxin = Several days Being so restless that it is hard to sit still: 0 = Not at all Becoming easily annoyed or irritable: 0 = Not at all Feeling afraid as if something awful might happen: 1 = Several days Total JAROD-7 score (0-4 normal; 5-9 mild; 10-14 moderate; 15-21 severe): 5 Source: Developed by Drs. Raul Chavez, Karol Yañez, Vincent Williamson and colleagues, with an educational adrianne from [email or web address]. Review of Systems Const Denies chills, Denies difficulty sleeping, Denies fatigue, Denies fever(s) and Denies headache(s) ENT Denies dysphagia, Denies dizziness, Denies otalgia, Denies headache(s), Denies neck pain, Denies odynophagia and Denies sore throat Card Denies chest pain, Denies rapid heart rate, Denies palpitations and Denies dyspnea Resp Denies chest congestion, Denies cough, Denies dyspnea and Denies wheezing GI Denies abdominal pain, Denies constipation, Denies dysphagia, Denies heartburn, Denies diarrhea, Denies nausea, Denies odynophagia and Denies vomiting Denies urinary frequency, Denies dysuria and Denies urinary urgency Musc Denies back pain, Denies arthralgias and Denies neck pain Skin/Breast Denies rash Neuro Denies dizziness, Denies headache(s) and Denies paresthesias Psych Reports anxiety (on and off), Denies depression and Reports panic attacks Endo Denies fatigue and Denies palpitations Elan/Lymph Denies easy bruising Aller/Immun Denies wheezing Physical exam (Primary Care) Vital Signs: Last Vital Signs Pulse 81 01/22/25 09:43 BP 130/82 01/22/25 09:43 Pulse Ox 97 01/22/25 09:43 Oxygen Delivery Method Room Air 01/22/25 09:43 BMI result Body Mass Index 36.8 Tobacco/Smoking Status: Tobacco use Status Tobacco use date assessed 01/22/25 01/22/25 09:49 Patient Tobacco Use Status Former Tobacco user 01/22/25 09:49 e-Cigarette/Vaping Use Never Used 01/22/25 09:49 PHQ-9: PHQ-9 Score PHQ-9: Total score 0 01/22/25 10:14 Depression Screening Interpretation: Negative Thrive Assessment: Date of Thrive Assessment Date Thrive assessed 07/12/24 01/22/25 09:49 Currently or been in a relationship where the following occur: No concerns reported Const General: no acute distress and alert HENMT Ears: TM's normal bilaterally and EAC's normal Throat: Yes posterior oropharynx normal and Yes tonsils normal (no TP congestion) Neck Neck: Yes supple and No lymphadenopathy Thyroid: Thyroid normal Resp Auscultation: clear to auscultation bilaterally, no rales and no wheezes Cardio Rate: regular rate Rhythm: regular rhythm Heart sounds: no murmurs GI Palpation (GI): Soft to palpation and nontender Auscultation: normal bowel sounds General: Yes no CVA tenderness Back/Spine/Pelvis Back: no CVA tenderness Thoracic/Lumbar Spine: No lumbar spinal tenderness Skin Rashes: no rashes Extrem General: Yes no clubbing, cyanosis or edema Results AMB Hemoglobin A1c AMB Hemoglobin A1c 5.1 % Last Edit by Lianet Ragland MA on 01/22/25 09:59 Results Reviewed Results Reviewed: Laboratory Last Values Hgb A1c (Clinic) 5.1 % (4.0-6.0) 01/22/25 09:55 Laboratory Tests 07/23/24 01/22/25 08:20 09:55 WBC 7.5 Hgb 13.4 Hct 41.1 Plt Count 308 Sodium 142 Potassium 4.0 Creatinine 0.72 Estimated GFR > 60 Fasting Glucose 92 Hgb A1c (Clinic) 5.1 Calcium 9.4 AST 33 H ALT 47 H Triglycerides 85 Cholesterol 185 LDL Cholesterol, Calc 96 HDL Cholesterol 72 25-OH Vitamin D Total 55.1 TSH 1.39 Ur Specific [place] 1.015 Urine Protein Negative Urine Glucose (UA) Negative Urine Blood Negative Urine Nitrite Negative Ur Leukocyte Esterase Trace H Coding Level of Care Code Est Pt Level 4 (33938) Diagnoses Primary osteoarthritis of right knee M17.11 Elevated LFTs R79.89 Anxiety F41.9 Post traumatic stress disorder (PTSD) F43.10 Obesity (BMI 30-39.9) E66.9 Additional Codes PHQ-9 - 14727 - PHQ-9 Billing: Yes ([id number]) Assessment & Plan Assessment & Plan (1) Primary osteoarthritis of right knee: Code(s): M17.11 - Unilateral primary osteoarthritis, right knee Category: Medical Plan: X-rays of the right knee done back in May 2022 revealed (+) very mild degenerative change of the medial joint space compartment of the right knee Continue OTC Tylenol or Ibuprofen as needed for knee pain Follow up with orthopedics as scheduled or as needed (2) Elevated LFTs: Code(s): R79.89 - Other specified abnormal findings of blood chemistry Category: Medical Plan: Patient's LFTs (AST and ALT) were both slightly elevated on her labs done back in July 2024 - are most likely related to her weight Patient states that she does not drink any alcohol and does not take any Rx containing Tylenol We will continue to monitor her LFTs regularly and will check abdominal US only if her LFTs increase significantly (3) Anxiety: Code(s): F41.9 - Anxiety disorder, unspecified Category: Medical Plan: Have advised patient previously that her recently increasing anxiety symptoms are likely due to PTSD, with the trigger being the father of her 3 yr old child being arrested a couple of years ago for charges of child pornography She prefers not to take any Rx if they are avoidable - she has been trying to get in to see a at least a therapist or counselor for a while now but has not been successful We tried referring her to our outpatient psychiatry clinic for initial assessment and patient states that she actually received a call from someone at [facility] advising her that they will place her on a waiting list and reach out to her again as soon as she is scheduled to see someone but patient states that it has been about 6 months now and she has not heard back from them at all. Have advised her to try calling them back to see how far along she is in line to see psychiatry and if necessary, we can place a new referral for her (4) Post traumatic stress disorder (PTSD): Code(s): F43.10 - Post-traumatic stress disorder, unspecified Category: Medical Plan: See above (5) Obesity (BMI 30-39.9): Code(s): E66.9 - Obesity, unspecified Category: Medical Plan: Reinforced diet/exercise as tolerated/lose weight Patient has requested for a referral to a dietitian for advice to help her lose weight - will try referring her to weight management at [facility] and advised her that they should have dietitians there who can help her with this Advised that the dietitians we have here at [facility] are mostly for [place]etics Plan To return in 6 months for her next annual physical examination Will have her get her labs repeated BEFORE she returns in a few months for her next appointment Orders: Orders Complete Blood Count Auto Diff 6 Months D64.9 - Anemia, unspecified, Z00.00 - Encounter for general adult medical examination without abnormal findings Lipid Panel 6 Months E78.00 - Pure hypercholesterolemia, unspecified, Z00.00 - Encounter for general adult medical examination without abnormal findings TSH reflex Free T4 6 Months E78.00 - Pure hypercholesterolemia, unspecified, Z00.00 - Encounter for general adult medical examination without abnormal findings UA CC w/rflx Micro + Cult 6 Months R30.0 - Dysuria, Z00.00 - Encounter for general adult medical examination without abnormal findings AMB Hemoglobin A1c Today R73.01 - Impaired fasting glucose Comprehensive [place]. Panel Fast 6 Months E78.00 - Pure hypercholesterolemia, unspecified, Z00.00 - Encounter for general adult medical examination without abnormal findings Vitamin D 25-OH Total 6 Months E55.9 - Vitamin D deficiency, unspecified, Z00.00 - Encounter for general adult medical examination without abnormal findings Referrals Medical Weight Management Referral E66.9 - Obesity, unspecified
[2025-01-22 09:43] VITALS: BP 130/82; PULSE 81; O2SAT 97; BMI 36.8
== END 2025-01-22 10:27 | disposition home or self-care (01) ==
LOC: HO.HMCH 09:40
PROVIDERS: PCP Internal Medicine; Visit Provider Internal Medicine
DX: M17.11 Unilateral primary osteoarthritis, right knee (principal); R79.89 Other specified abnormal findings of blood chemistry; E66.9 Obesity, unspecified; Z68.36 Body mass index [BMI] 36.0-36.9, adult; F41.9 Anxiety disorder, unspecified; F43.10 Post-traumatic stress disorder, unspecified; R73.01 Impaired fasting glucose

== ENCOUNTER → 2025-01-22 09:39 | Outpatient (BNVA) | payer OTHER, SELFPAY | PROVIDERS: PCP Internal Medicine; Visit Provider Internal Medicine | DX: M17.11 Unilateral primary osteoarthritis, right knee (principal); R79.89 Other specified abnormal findings of blood chemistry; F41.9 Anxiety disorder, unspecified; F43.10 Post-traumatic stress disorder, unspecified; D64.9 Anemia, unspecified; E78.00 Pure hypercholesterolemia, unspecified; R30.0 Dysuria; R73.01 Impaired fasting glucose; E55.9 Vitamin D deficiency, unspecified; E66.9 Obesity, unspecified; Z68.36 Body mass index [BMI] 36.0-36.9, adult | CPT/HCPCS: 83036; 96127; 99212 ==